=== PATIENT | female | born 1950 | race Caucasian/White ===

== ENCOUNTER 2016-05-22 21:14 | Inpatient (IN) | payer MEDICARE, MEDICAID ==
[~2016-05-22] VITALS: Ht 144.8 cm; Wt 75.0 kg
[~2016-05-22 21:14] MED LIST: GLUCTAB OR; LANTUS2P SC; LISI-360 PO; NAPR-573 PO; NRSS SQ; SYNT50TA PO
[2016-05-22 21:27] VITALS: BP 67/48; PULSE 66; RESP 16; O2SAT 90
[2016-05-22] MEDS ORDERED: PANTOPRAZOLE INJ 80 MG in SODIUM CHLORIDE 0.9% INJ 35 ML IV ONE (21:30)
[2016-05-22] MEDS ORDERED: SODIUM CHLORIDE 0.9% FLUSH 10 ML FLUSH IVF PRN (21:30)
--- NOTE | 2016-05-22 21:31 | PD ---
HPI Chief Complaint: GI Complaint Time Seen by Provider: 21:29 Travel History International Travel<30 days: No Contact w/Intl Traveler<30days: No History of Present Illness HPI 66 year old female presents to the emergency department after a syncopal episode that occurred just prior to arrival. Patient arrived via EMS. Patient was on the toilet and had a syncopal episode. Her family member states that is not new for her. However, during transport to the hospital, the patient started with profuse brown/red diarrhea. Patient remains answering questions, but is diaphoretic and weak. Patient reports history diabetes, hypothyroidism, hypertension. She states she is on insulin. She reports diffuse abdominal pain. Patient denies history of GI bleed. PFSH Past Medical History Diabetes: Yes Diminished Hearing: No Hypertension: Yes Thyroid Disease: Yes (HYPO) Menopausal: Yes Tubal Ligation: Yes Past Surgical History Abdominal Surgery: Yes ( X2) Section: Yes (X2) Social History Alcohol Use: No Tobacco Use: No Substance Use: No Allergies-Medications (Allergen,Severity, Reaction): Coded Allergies: No Known Allergies (Verified , 05/22/16) Reported Meds & Prescriptions Reported Meds & Active Scripts Active Reported Synthroid (Levothyroxine Sodium) 50 Mcg Tab 50 Mcg PO DAILY Naprosyn (Naproxen) 500 Mg Tab 375 Mg PO BID Metformin ER (Metformin HCl) 500 Mg Alejo 500 Mg PO BID With evening meal Lisinopril 10 Mg Tab 10 Mg PO DAILY Humulin R Inj (Insulin Human Regular) 1,000 Unit/10 Ml Vial 1-9 Units SQ ACHS Max dose at bedtime( )units; sugars < 70(0)units; sugars 150-199,(1)unit; sugars 200-249(3)units; sugars 250-299,(5)units; sugars 300-349(7)units; sugars more than 349(9)units. Lantus Inj (Insulin Glargine) 1,000 Unit/10 Ml Vial 12 Units SQ HS Review of Systems Except as stated in HPI: all other systems reviewed are Neg Physical Exam Narrative GENERAL: Well-nourished, well-developed female patient, afebrile. Patient is diaphoretic. SKIN: Focused skin assessment warm/dry. HEAD: Normocephalic. Atraumatic. EYES: No scleral icterus. No injection or drainage. NECK: Supple, trachea midline. No JVD or lymphadenopathy. CARDIOVASCULAR: Regular rate and rhythm without murmurs, gallops, or rubs. I am unable to palpate radial pulses upon arrival. RESPIRATORY: Breath sounds equal bilaterally. No accessory muscle use. Lungs sounds clear to auscultation. GASTROINTESTINAL: Abdomen soft and nondistended. Patient has diffuse tenderness to palpation. MUSCULOSKELETAL: No cyanosis, or edema. Patient has generalized weakness. BACK: Nontender without obvious deformity. No CVA tenderness. Data Data Last Documented VS Vital Signs Date Time Temp Pulse Resp B/P Pulse Ox O2 Delivery O2 Flow Rate FiO2 05/22/16 22:34 97.0 79 18 116/78 100 Nasal Cannula 2 Orders Type And Screen (05/22/16 21:27) Complete Blood Count With Diff (05/22/16 21:26) Comprehensive Metabolic Panel (05/22/16 21:26) Lipase (05/22/16 21:26) Prothrombin Time / Inr (Pt) (05/22/16 21:26) Act Partial Throm Time (Ptt) (05/22/16 21:26) Ua Includes Microscopic (05/22/16 21:26) Red Blood Cells (Rbc) (05/22/16 21:26) Blood Product Administration .UPON TRANSFUSION (05/22/16 21:26) Ecg Monitoring (05/22/16 21:26) Iv Access Insert/Monitor (05/22/16 21:26) Oximetry (05/22/16 21:26) Sodium Chlor 0.9% 1000 Ml Inj (Ns 1000 M (05/22/16 21:26) Sodium Chloride 0.9% Flush (Ns Flush) (05/22/16 21:30) Pantoprazole Inj (Protonix Inj) (05/22/16 21:30) Pantoprazole Inj (Protonix Inj) (05/22/16 21:30) Electrocardiogram (05/22/16 ) Ct Abd/Pel W Iv Contrast(Rout) (05/22/16 ) Chest, Single Ap (05/22/16 ) Labs Laboratory Tests Test 05/22/16 05/22/16 05/22/16 21:37 21:39 22:04 Blood Type A POSITIVE Antibody Screen NEGATIVE Crossmatch Leukocyte-Reduced Leukocyte-Reduced Red Blood Red Blood Cells Cells Blood Bank Comment White Blood Count 14.5 TH/MM3 Red Blood Count 4.92 MIL/MM3 Hemoglobin 12.7 GM/DL Hematocrit 40.5 % Mean Corpuscular Volume 82.4 FL Mean Corpuscular Hemoglobin 25.8 PG Mean Corpuscular Hemoglobin 31.3 % Concent Red Cell Distribution Width 13.9 % Platelet Count 212 TH/MM3 Mean Platelet Volume 6.7 FL Neutrophils (%) (Auto) 79.4 % Lymphocytes (%) (Auto) 17.7 % Monocytes (%) (Auto) 1.7 % Eosinophils (%) (Auto) 0.9 % Basophils (%) (Auto) 0.3 % Neutrophils # (Auto) 11.5 TH/MM3 Lymphocytes # (Auto) 2.6 TH/MM3 Monocytes # (Auto) 0.2 TH/MM3 Eosinophils # (Auto) 0.1 TH/MM3 Basophils # (Auto) 0.0 TH/MM3 CBC Comment DIFF FINAL Differential Comment Prothrombin Time 14.1 SEC Prothromb Time International 1.3 RATIO Ratio Activated Partial 29.4 SEC Thromboplast Time Sodium Level 140 MEQ/L Potassium Level 2.9 MEQ/L Chloride Level 106 MEQ/L Carbon Dioxide Level 20.0 MEQ/L Anion Gap 14 MEQ/L Blood Urea Nitrogen 9 MG/DL Creatinine 1.05 MG/DL Estimat Glomerular Filtration 53 ML/MIN Rate Random Glucose 163 MG/DL Calcium Level 9.3 MG/DL Total Bilirubin 0.6 MG/DL Aspartate Amino Transf 39 U/L (AST/SGOT) Alanine Aminotransferase 25 U/L (ALT/SGPT) Alkaline Phosphatase 87 U/L Total Protein 7.2 GM/DL Albumin 3.7 GM/DL Lipase 297 U/L Urine Color YELLOW Urine Turbidity CLEAR Urine pH 7.0 Urine Specific [place] 1.006 Urine Protein 30 mg/dL Urine Glucose (UA) NEG mg/dL Urine Ketones NEG mg/dL Urine Occult Blood NEG Urine Nitrite NEG Urine Bilirubin NEG Urine Urobilinogen LESS THAN 2.0 MG/DL Urine Leukocyte Esterase NEG Urine WBC LESS THAN 1 /hpf Urine Squamous Epithelial <1 /hpf Cells Urine Bacteria RARE /hpf Microscopic Urinalysis Comment MDM Medical Decision Making Medical Screen Exam Complete: Yes Emergency Medical Condition: Yes Medical Record Reviewed: Yes Differential Diagnosis GI bleed versus electrolyte abnormality versus dehydration versus infectious diarrhea Narrative Course 66-year-old female presents to the emergency department via EMS with diffuse diarrhea after syncopal episode. Hemoccult is grossly positive. Manual blood pressure 67/48 upon arrival. I'm unable to palpate radial pulses due to hypertension. Patient is talking, but weak. Patient has diffuse tenderness to palpation over the abdomen. Attending physician, Dr. donnelly, cell the patient with me. Patient is given 1 unit emergency release packed red blood cells and normal saline IV bolus 2. EKG, CBC, CMP, lipase, PTT, PTT/INR, UA, type and screen are ordered and pending. Protonix 80 mg IV and started on a proton extremity milligrams per hour. Chest x-ray is ordered and pending. CT the abdomen/pelvis with IV contrast is ordered and pending. 0 - I spoke with TERESA Hendrickson electronic pagination system operator. He would like patient to be stabilized and he will scope her tomorrow. EKG shows SR, HR 76, no acute ST changes. CBC shows leukocytosis of 14.5, neutrophilia of 79.4. Dr. Rivera will resume care and disposition of patient. Aga Carlos May 22, 2016 21:31
[2016-05-22] MEDS: SODIUM CHLOR 0.9% 1000 ML INJ 1,000 ML IV SCH ×2 (21:39→22:43)
[2016-05-22 21:45] VITALS: TEMP 95
[2016-05-22 21:47] LABS: AUTOMATED NEUTROPHIL # 11.5 TH/MM3 (1.8-7.7); BASOPHIL % 0.3 % (0.0-2.0); EOSINOPHIL # 0.1 TH/MM3 (0-0.4); EOSINOPHIL % 0.9 % (0.0-4.0); HEMATOCRIT 40.5 % (35.0-46.0); HEMO FLAGS DIFF FINAL; LYMPH % 17.7 % (9.0-44.0); LYMPHOCYTE # 2.6 TH/MM3 (1.0-4.8); MEAN CELL VOLUME 82.4 FL (80.0-100.0); MEAN CORPUSCULAR HEMOGLOBIN 25.8 PG (27.0-34.0); MEAN CORPUSCULAR HGB CONC 31.3 % (32.0-36.0); MONO % 1.7 % (0.0-8.0); NEUT % 79.4 % (16.0-70.0); PLATELET COUNT 212 TH/MM3 (150-450); RED BLOOD COUNT 4.92 MIL/MM3 (4.00-5.30); RED CELL DISTRIBUTION WIDTH 13.9 % (11.6-17.2); WHITE BLOOD COUNT 14.5 TH/MM3 (4.0-11.0)
[2016-05-22 21:57] LABS: APTT (PATIENT) 29.4 SEC (24.3-30.1); INTERNATIONAL NORMALIZED RATIO 1.3 RATIO; PROTHROMBIN TIME - PATIENT 14.1 SEC (9.8-11.6)
--- NOTE | 2016-05-22 22:09 | PD ---
Physical Exam Date Seen by Provider: May 22, 2016 Time Seen by Provider: 21:20 Narrative Patient presented via EMS following a syncopal episode at home. She was on the toilet and had profound diarrhea. EMS reported hypotension in route. Data Data Last Documented VS Vital Signs Date Time Temp Pulse Resp B/P Pulse Ox O2 Delivery O2 Flow Rate FiO2 05/23/16 00:20 97.9 80 16 114/57 100 Nasal Cannula 2 Orders Type And Screen (05/22/16 21:27) Complete Blood Count With Diff (05/22/16 21:26) Comprehensive Metabolic Panel (05/22/16 21:26) Lipase (05/22/16 21:) Prothrombin Time / Inr (Pt) (05/22/16:) Act Partial Throm Time (Ptt) (05/22/16:) Ua Includes Microscopic (05/22/16:) Red Blood Cells (Rbc) (05/22/16 21:) Blood Product Administration .UPON TRANSFUSION (05/22/16:26) Ecg Monitoring (05/22/16:) Iv Access Insert/Monitor (05/22/16 21:26) Oximetry (05/22/16 21:26) Sodium Chlor 0.9% 1000 Ml Inj (Ns 1000 M (05/22/16 21:26) Sodium Chloride 0.9% Flush (Ns Flush) (05/22/16 21:30) Pantoprazole Inj (Protonix Inj) (05/22/16 21:30) Pantoprazole Inj (Protonix Inj) (05/22/16 21:30) Electrocardiogram (05/22/16 ) Ct Abd/Pel W Iv Contrast(Rout) (05/22/16 ) Chest, Single Ap (05/22/16 ) Lactic Acid (05/22/16 22:41) Iohexol 350 Inj (Omnipaque 350 Inj) (05/22/16 23:26) Ondansetron Inj (Zofran Inj) (05/23/16 00:10) Ondansetron Inj (Zofran Inj) (05/23/16 00:15) Piperacil-Tazo 3.375 Gm Premix (Zosyn 3. (05/23/16 00:15) C Diff Toxin Pcr (05/23/16 00:19) Insert Temp Sensing [place] Cath (05/23/16 00:19) Labs Laboratory Tests Test 05/22/16 05/22/16 05/22/16 05/22/16 21:37 21:39 22:04 22:23 Blood Type A POSITIVE A POSITIVE Antibody Screen NEGATIVE Crossmatch Leukocyte-Reduced Leukocyte-Reduced Red Blood Red Blood Cells Cells Blood Bank Comment White Blood Count 14.5 TH/MM3 Red Blood Count 4.92 MIL/MM3 Hemoglobin 12.7 GM/DL Hematocrit 40.5 % Mean Corpuscular Volume 82.4 FL Mean Corpuscular Hemoglobin 25.8 PG Mean Corpuscular Hemoglobin 31.3 % Concent Red Cell Distribution Width 13.9 % Platelet Count 212 TH/MM3 Mean Platelet Volume 6.7 FL Neutrophils (%) (Auto) 79.4 % Lymphocytes (%) (Auto) 17.7 % Monocytes (%) (Auto) 1.7 % Eosinophils (%) (Auto) 0.9 % Basophils (%) (Auto) 0.3 % Neutrophils # (Auto) 11.5 TH/MM3 Lymphocytes # (Auto) 2.6 TH/MM3 Monocytes # (Auto) 0.2 TH/MM3 Eosinophils # (Auto) 0.1 TH/MM3 Basophils # (Auto) 0.0 TH/MM3 CBC Comment DIFF FINAL Differential Comment Prothrombin Time 14.1 SEC Prothromb Time International 1.3 RATIO Ratio Activated Partial 29.4 SEC Thromboplast Time Sodium Level 140 MEQ/L Potassium Level 2.9 MEQ/L Chloride Level 106 MEQ/L Carbon Dioxide Level 20.0 MEQ/L Anion Gap 14 MEQ/L Blood Urea Nitrogen 9 MG/DL Creatinine 1.05 MG/DL Estimat Glomerular Filtration 53 ML/MIN Rate Random Glucose 163 MG/DL Calcium Level 9.3 MG/DL Total Bilirubin 0.6 MG/DL Aspartate Amino Transf 39 U/L (AST/SGOT) Alanine Aminotransferase 25 U/L (ALT/SGPT) Alkaline Phosphatase 87 U/L Total Protein 7.2 GM/DL Albumin 3.7 GM/DL Lipase 297 U/L Urine Color YELLOW Urine Turbidity CLEAR Urine pH 7.0 Urine Specific [place] 1.006 Urine Protein 30 mg/dL Urine Glucose (UA) NEG mg/dL Urine Ketones NEG mg/dL Urine Occult Blood NEG Urine Nitrite NEG Urine Bilirubin NEG Urine Urobilinogen LESS THAN 2.0 MG/DL Urine Leukocyte Esterase NEG Urine WBC LESS THAN 1 /hpf Urine Squamous Epithelial <1 /hpf Cells Urine Bacteria RARE /hpf Microscopic Urinalysis Comment Test 05/22/16 22:47 Lactic Acid Level 1.7 mmol/L MDM Supervised Visit with WILLIAN: Yes Narrative Course I, Dr. Rivera, have reviewed the advance practice practitioner's documentation and am in agreement, met with the patient face to face, made the diagnosis, and the medical decision making was done by me. *My assessment and Findings: Patient was lucid. She is diaphoretic. Initial blood pressure was very low and she has no palpable radial pulses. Fluid resuscitation was started. Levophed has been considered but the patient responded rapidly to fluid resuscitation. Her stool is strongly Hemoccult positive. Therefore, emergent blood was ordered. Has been hemodynamically stable after fluid resuscitation. She did receive 1 unit of emergency release blood. CBC & BMP Diagram 05/22/16 21:39 Last Impressions Chest X-Ray 05/22/16 0000 Signed Impressions: Service Date/Time: Sunday, May 22, 2016 21:56 - CONCLUSION: 1. No acute findings. Kev Nichols MD Abdomen/Pelvis CT 05/22/16 0000 Signed Impressions: Service Date/Time: Sunday, May 22, 2016 23:24 - CONCLUSION: Thickwalled colon in the descending, transverse and the sigmoid colon wall likely colitis. Haresh De León MD Status and has been ordered for colitis.. Critical Care Narrative Aggregate critical care time was 30 minutes. Time to perform other separately billable procedures was not included in the critical care time. My time did not include minutes spent treating any other patients simultaneously or on activities that did not directly contribute to the patient's treatment. The services I provided to this patient were to treat and/or prevent clinically significant deterioration due to hemorrhagic or septic shock. I provided critical care services requiring my management, as noted below: Chart data review, documentation time, medication orders and management, vital sign assessments/reviewing monitor data, ordering and reviewing lab tests, ordering and interpreting/reviewing x-rays and diagnostic studies, care of the patient and discussion of the patient with the admitting physicians. Sepsis Criteria SIRS Criteria (2 or more): Temp > 100.9 or < 96.8, WBC > 75517, < 4000 or > 10 % bands Sepsis Criteria (SIRS+source): Infect source susp/known Severe Sepsis (+one): Hypotension Physician Communication Physician Communication Dr. Doan will admit. GI will see in the morning. Diagnosis Primary Impression: Septic shock Additional Impressions: GI bleed Qualified Code: K92.2 - Gastrointestinal hemorrhage, unspecified gastrointestinal hemorrhage type Colitis Admitting Information Admitting Physician Requests: Admit Condition: Melody Mccain MD May 22, 2016 22:09
[2016-05-22 22:10] VITALS: BP 78/57; PULSE 81; RESP 18; TEMP 96; O2SAT 98
[2016-05-22 22:16] LABS: BACTERIA, URINE RARE /hpf; BLOOD, URINE NEG (NEG); GLUCOSE,URINE NEG (NEG); KETONE, URINE NEG (NEG); NITRITE,URINE NEG (NEG); SQUAMOUS EPITHELIAL CELL URINE <1 /hpf (0-5); URINE COLOR YELLOW (YELLW/STRAW)
[2016-05-22 22:21] LABS: ALKALINE PHOSPHATASE 87 U/L (45-117); ALT (GPT) 25 U/L (10-53); ANION GAP 14 MEQ/L (5-15); AST (GOT) 39 U/L (15-37); BLOOD UREA NITROGEN 9 MG/DL (7-18); CHLORIDE 106 MEQ/L (98-107); GLOMERULAR FILTRATION RATE 53 ML/MIN (>89); SODIUM (NA) 140 MEQ/L (136-145); TOTAL BILIRUBIN ADULT 0.6 MG/DL (0.2-1.0)
[2016-05-22 22:22] LABS: POTASSIUM 2.9 MEQ/L (3.5-5.1)
[2016-05-22] MEDS: PANTOPRAZOLE INJ 80 MG in SODIUM CHLORIDE 0.9% INJ 100 ML IV SCH (22:24)
[2016-05-22 22:34] VITALS: BP 116/78; PULSE 79; RESP 18; TEMP 95.2; TEMP 97; O2SAT 100
[2016-05-22] MEDS ORDERED: LANTUS2P SQ (22:37)
[2016-05-22] MEDS ORDERED: INSU100V2 SQ (22:37)
[2016-05-22] MEDS ORDERED: METF500T4 PO (22:38)
[2016-05-22] MEDS ORDERED: LISI10TA3 PO (22:38)
[2016-05-22] MEDS ORDERED: NAPR500 PO (22:39)
[2016-05-22] MEDS ORDERED: LEVO.05 PO (22:39)
--- NOTE | 2016-05-22 22:41 | RADRPT ---
EXAM DATE/TIME: 05/22/2016 21:56 [facility] COMPARISON: CHEST SINGLE AP, July 17, 2014, 22:02. INDICATIONS : Syncope. MEDICAL HISTORY : None. SURGICAL HISTORY : None. ENCOUNTER: Initial ACUITY: 1 day PAIN SCORE: 0/10 LOCATION: Bilateral chest FINDINGS: A single view of the chest demonstrates the lungs to be symmetrically aerated without evidence of mas s, infiltrate or effusion. The cardiomediastinal contours are unremarkable. Osseous structures are intact. CONCLUSION: 1. No acute findings. Kev Nichols MD on May 22, 2016 at 22:39 Board Certified Radiologist. This report was verified electronically.
[2016-05-22] MEDS ORDERED: IOHEXOL 350 MG/ML 10 ML VIAL (for RAD DIAG) IV ONE (23:26)
--- NOTE | 2016-05-22 23:38 | RADRPT ---
EXAM DATE/TIME: 05/22/2016 23:24 [facility] COMPARISON: No previous studies available for comparison. INDICATIONS : Abdominal pain with bloody stools. IV CONTRAST: 90 cc Omnipaque 350 (iohexol) IV ORAL CONTRAST: No oral contrast ingested. RADIATION DOSE: 7.24 CTDIvol (mGy) MEDICAL HISTORY : Hypertension. Diabetes mellitus type 2. Hypothyroidism. SURGICAL HISTORY : Tubal ligation. section. ENCOUNTER: Initial ACUITY: 2 days PAIN SCALE: 7/10 LOCATION: abdomen TECHNIQUE: Volumetric scanning of the abdomen and pelvis was performed. Using automated exposure control and ad justment of the mA and/or kV according to patient size, radiation dose was kept as low as reasonably achievable to obtain optimal diagnostic quality images. FINDINGS: LOWER LUNGS: The visualized lower lungs are clear. LIVER: Homogeneous density without lesion. There is no dilation of the biliary tree. No calcified gallston es. SPLEEN: Normal size without lesion. PANCREAS: Within normal limits. KIDNEYS: Normal in size and shape. There is no mass, stone or hydronephrosis. ADRENAL GLANDS: Within normal limits. VASCULAR: There is no aortic aneurysm. BOWEL/MESENTERY: The colon is diffusely thickwalled particularly in the transverse and descending colons. Could be see n in patient's with colitis. ABDOMINAL WALL: Within normal limits. RETROPERITONEUM: There is no lymphadenopathy. BLADDER: No wall thickening or mass. REPRODUCTIVE: Within normal limits. INGUINAL: There is no lymphadenopathy or hernia. MUSCULOSKELETAL: Within normal limits for patient age. CONCLUSION: Thickwalled colon in the descending, transverse and the sigmoid colon wall likely colitis. Haresh De León MD on May 22, 2016 at 23:35 Board Certified Radiologist. This report was verified electronically.
[2016-05-23] VITALS (15 sets, daily range): BP systolic 114–148; BP diastolic 5–75; PULSE 74–89; RESP 12–18; TEMP 97.9–100; O2SAT 96–100
[2016-05-23] MEDS ORDERED: ONDANSETRON HCL 4 MG/2 ML VIAL ONE (00:10)
[2016-05-23] MEDS ORDERED: ONDANSETRON HCL 4 MG/2 ML VIAL IV PUSH ONE (00:15)
[2016-05-23] MEDS ORDERED: PIPERACIL-TAZO 3.375 GM PREMIX 50 ML IV ONE (00:15)
--- NOTE | 2016-05-23 01:06 | HHI.HP ---
HPI Service [facility] Primary Care Physician Kevin Ellison MD Admission Diagnosis colitis Diagnoses: Chief Complaint: Syncope, GI bleed Travel History International Travel<30 Days: No Contact w/Intl Traveler <30 Da: No Traveled to Known Affected Are: No Sepsis Criteria SIRS Criteria (2 or more): Temp > 100.9 or < 96.8, WBC > 87925, < 4000 or > 10 % bands Sepsis Criteria (SIRS+source): Infect source susp/known Severe Sepsis (+one): Hypotension History of Present Illness This is a 66 year old female presents with a past medical history which includes DM, HTN, arthritis and hypothyroidism. Reports feeling dizzy prior to going to the bathroom. Patient was on the toilet began to have diarrhea then had syncopal event. Patient reports her daughter was present with her and she did lose consciousness. Denies head trauma. While being transported to the ER via EMS patient had profuse brown/red diarrhea. At that time patient had associated diaphoresis and weakness. Upon arrival to the ER patient was hypotensive with an initial BP of 67/48 which improved after 1L NS bolus, hypothermia 95.0 with leukocytosis 14.5. Patient reports she has had syncope while on the toilet before but reports that she has not had bleeding like this. Reports that she has never had a coloscopy in the past. Denies fevers, chills, SOB, chest pain,vomiting, sick contacts or changes in diet. Review of Systems Except as stated in HPI: all other systems reviewed are Neg Past Family Social History Past Medical History DM insulin dependent, HTN, hypothyroidism Past Surgical History C section x 2, tubal ligation Reported Medications Synthroid (Levothyroxine Sodium) 50 Mcg Tab 50 Mcg PO DAILY Naprosyn (Naproxen) 500 Mg Tab 375 Mg PO BID Metformin ER (Metformin HCl) 500 Mg Alejo 500 Mg PO BID With evening meal Lisinopril 10 Mg Tab 10 Mg PO DAILY Humulin R Inj (Insulin Human Regular) 1,000 Unit/10 Ml Vial 1-9 Units SQ ACHS Max dose at bedtime( )units; sugars < 70(0)units; sugars 150-199,(1)unit; sugars 200-249(3)units; sugars 250-299,(5)units; sugars 300-349(7)units; sugars more than 349(9)units. Lantus Inj (Insulin Glargine) 1,000 Unit/10 Ml Vial 12 Units SQ HS Allergies: Coded Allergies: No Known Allergies (Verified , 05/22/16) Active Ordered Medications Current Medications Medications (Trade) Dose Ordered Sig/Masood Route Start Time Stop Time Status Last Admin Sodium Chloride 2 ml 2 ml UNSCH PRN IVF 05/22/16 21:30 (Protonix Inj/NS Inj) 100 ml @ 10 mls/hr Q10H IV 05/22/16 21:30 05/22/16 22:24 (Synthroid) 50 mcg DAILY PO 05/23/16 09:00 UNV Family History DM, hypothyroidism and HTN run in her family Social History ETOH socially when she was younger has not had any ETOH in 20+ years quit smoking in the Physical Exam Vital Signs Vital Signs Date Time Temp Pulse Resp B/P Pulse Ox O2 Delivery O2 Flow Rate FiO2 05/23/16 00:20 97.9 80 16 114/57 100 Nasal Cannula 2 05/22/16 22:34 95.2 79 18 116/78 100 Nasal Cannula 2 05/22/16 22:20 16 05/22/16 22:10 96.0 81 18 78/57 98 Nasal Cannula 2 05/22/16 22:10 98 Nasal Cannula 2 05/22/16 21:45 95.0 05/22/16 21:27 66 16 67/48 90 Nasal Cannula 2 Physical Exam GENERAL: This is a well-nourished, well-developed patient, appears fatigued SKIN: No rashes, ecchymoses or lesions. Cool and dry. HEAD: Atraumatic. Normocephalic. No temporal or scalp tenderness. EYES: Extraocular motions intact, R eye. No scleral icterus. No injection or drainage. 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 RESPIRATORY: Clear to auscultation. Breath sounds equal bilaterally. No wheezes , rales, or rhonchi. GASTROINTESTINAL: Abdomen soft, generalized tenderness to palpation, nondistended. No guarding. MUSCULOSKELETAL: Extremities without clubbing, cyanosis, or edema. No joint tenderness, effusion, or edema noted. No calf tenderness. Negative Homans sign bilaterally. NEUROLOGICAL: Awake and alert. Motor and sensory grossly within normal limits. 4 out of 5 muscle strength in all muscle groups. Normal speech. Laboratory Laboratory Tests Test 05/22/16 05/22/16 05/22/16 05/22/16 21:37 21:39 22:04 22:23 Blood Type A POSITIVE A POSITIVE Antibody Screen NEGATIVE Crossmatch Leukocyte-Reduced Leukocyte-Reduced Red Blood Red Blood Cells Cells Blood Bank Comment White Blood Count 14.5 Red Blood Count 4.92 Hemoglobin 12.7 Hematocrit 40.5 Mean Corpuscular Volume 82.4 Mean Corpuscular Hemoglobin 25.8 Mean Corpuscular Hemoglobin 31.3 Concent Red Cell Distribution Width 13.9 Platelet Count 212 Mean Platelet Volume 6.7 Neutrophils (%) (Auto) 79.4 Lymphocytes (%) (Auto) 17.7 Monocytes (%) (Auto) 1.7 Eosinophils (%) (Auto) 0.9 Basophils (%) (Auto) 0.3 Neutrophils # (Auto) 11.5 Lymphocytes # (Auto) 2.6 Monocytes # (Auto) 0.2 Eosinophils # (Auto) 0.1 Basophils # (Auto) 0.0 CBC Comment DIFF FINAL Differential Comment Prothrombin Time 14.1 Prothromb Time International 1.3 Ratio Activated Partial 29.4 Thromboplast Time Sodium Level 140 Potassium Level 2.9 Chloride Level 106 Carbon Dioxide Level 20.0 Anion Gap 14 Blood Urea Nitrogen 9 Creatinine 1.05 Estimat Glomerular Filtration 53 Rate Random Glucose 163 Calcium Level 9.3 Total Bilirubin 0.6 Aspartate Amino Transf 39 (AST/SGOT) Alanine Aminotransferase 25 (ALT/SGPT) Alkaline Phosphatase 87 Total Protein 7.2 Albumin 3.7 Lipase 297 Urine Color YELLOW Urine Turbidity CLEAR Urine pH 7.0 Urine Specific [place] 1.006 Urine Protein 30 Urine Glucose (UA) NEG Urine Ketones NEG Urine Occult Blood NEG Urine Nitrite NEG Urine Bilirubin NEG Urine Urobilinogen LESS THAN 2.0 Urine Leukocyte Esterase NEG Urine WBC LESS THAN 1 Urine Squamous Epithelial <1 Cells Urine Bacteria RARE Microscopic Urinalysis Comment Test 05/22/16 22:47 Lactic Acid Level 1.7 Result Diagram: 05/22/16213805/[id number]/[id number] Imaging Last Impressions Chest X-Ray 05/22/16 0000 Signed Impressions: Service Date/Time: Sunday, May 22, 2016 21:56 - CONCLUSION: 1. No acute findings. Kev Nichols MD Abdomen/Pelvis CT 05/22/16 0000 Signed Impressions: Service Date/Time: Sunday, May 22, 2016 23:24 - CONCLUSION: Thickwalled colon in the descending, transverse and the sigmoid colon wall likely colitis. Haresh De León MD Septic Shock Reassessment Heart: Regular rate and rhythm Lungs: Clear Skin: Cold, Dry Peripheral Pulses: Weak Right Dorsalis Pedis Weak Left Dorsalis Pedis Bounding Right Radial Bounding Left Radial Capillary Refill: Sluggish Assessment and Plan Assessment and Plan This is a 66 year old female presents with a past medical history which includes DM, HTN and hypothyroidism. Patient had a syncopal episode while on the toilet, was being transported to the ER via EMS and stated to have profuse brown/red diarrhea. Patient had associated diaphoresis and weakness. Upon arrival to the ER patient was hypotensive with an initial BP of 67/48 which improved after 1L NS bolus, hypothermia 95.0 with leukocytosis 14.5. Severe Septic (WBC 14.5, temp 95.0, suspected source colitis, with hypotension) Colitis Zosyn started by ER BP improved after 1L fluid bolus in ER Continue NS at 100ml/hour Abdominal CT revealed: Thick walled colon in the descending, transverse and the sigmoid colon wall likely colitis. close monitoring NPO GI consult ER provider spoke with DR. Mccarty- who plans colonoscopy in AM GI bleed IV fluids NS at 100ml/hour occult positive stool in ER H&H Q6H Protonix drip NPO GI consult ER provider spoke with DR. Mccarty- who plans colonoscopy in AM Syncope- likely secondary to vasovagal/hypotension/GI bleed and severe sepsis no further workup of syncope at this time Hypokalemia potassium 2.9 replace with potassium 60 meq IV add on mag pending recheck 0600 DM type 2- now on insulin and metformin at home hold metformin hold lantus accuchecks ACHS with SSI coverage Hypothyroidism- chronic Continue Synthroid TSH pending DVT prophylaxis with SCDs Discussed with ER provider, nursing and patient Written by Reba Gentile, acting as scribe for Dr. Doan on 05/23/16 at 01:30. This note was transcribed by scribe [Reba Gentile]. I, Dr. Tony Doan personally performed the history, physical exam, and medical decision making; and confirmed the accuracy of the information in the transcribed note. Authenticated by Dr. Tony Doan on 05/23/16 at 0130. Physician Certification 2 Midnight Certification Type: Admission for Inpatient Services Order for Inpatient Services The services are ordered in accordance with Medicare regulations or non- Medicare payer requirements, as applicable. In the case of services not specified as inpatient-only, they are appropriately provided as inpatient services in accordance with the 2-midnight benchmark. Estimated LOS (days): 5 days is the estimated time the patient will need to remain in the hospital, assuming treatment plan goals are met and no additional complications. Post-Hospital Plan: [place] Reba Gentile May 23, 2016 01:06 Tony Doan MD May 23, 2016 07:07
[2016-05-23] MEDS ORDERED: NALOXONE HCL 0.4 MG/ML AMP IV PRN (01:30)
[2016-05-23] MEDS ORDERED: ACETAMINOPHEN 325 MG TAB PO PRN (01:30)
[2016-05-23] MEDS ORDERED: SODIUM CHLORIDE 0.9% FLUSH 10 ML FLUSH IV FLUSH PRN (01:30)
[2016-05-23] MEDS ORDERED: ONDANSETRON HCL 4 MG/2 ML VIAL IVP PRN (01:30)
[2016-05-23] MEDS: POTASSIUM CHLOR 20 MEQ PREMIX 100 ML IV SCH ×3 (01:44→05:52)
[2016-05-23] MEDS: SODIUM CHLOR 0.9% 1000 ML INJ 1,000 ML IV SCH ×3 (01:44→22:12)
[2016-05-23 02:12] LABS: HEMATOCRIT 38.5 % (35.0-46.0)
[2016-05-23] MEDS ORDERED: GLUCAGON 1 MG/ML VIAL OTHER PRN (02:15)
[2016-05-23 03:11] LABS: C. DIFF EPI 027 PRESUMPTIVE NEGATIVE (NEGATIVE); C. DIFF TOXIN PCR NEGATIVE (NEGATIVE)
[2016-05-23] MEDS ORDERED: MORPHINE SULFATE 4 MG/ML INJ IV PUSH PRN (03:15)
[2016-05-23] MEDS: PANTOPRAZOLE INJ 80 MG in SODIUM CHLORIDE 0.9% INJ 100 ML IV SCH ×3 (05:48→22:11)
[2016-05-23] MEDS: PIPERACIL-TAZO 3.375 GM PREMIX 50 ML IV SCH ×3 (05:52→17:01)
[2016-05-23] MEDS: LEVOTHYROXINE SODIUM 50 MCG TAB PO SCH (06:00)
[2016-05-23 06:17] LABS: HEMATOCRIT 35.9 % (35.0-46.0)
[2016-05-23] MEDS: INSULIN ASPART SUPPLEMENTAL SCALE SQ SCH ×4 (07:00→21:00)
--- NOTE | 2016-05-23 11:29 | PD.CONS ---
HPI History of Present Illness This is a 66 year old who came to the emergency room on 05/22/16 after a syncopal episode while on the toilet. She reports that she was in her normal state of health when she had the sudden onset of abdominal cramping and the urge to move her bowels yesterday. She reports that she had a large amount of liquid stool (she did not see the color) and vomited x 1 (again, she did not see the color). She became dizzy and states she passed out while on the toilet. [facility] was called and on the way to the ER, she passed a large amount of bloody stool. The nurse reports that she also had a liquid stool with blood in it early this am around 3am. She has not had any further episodes. Abdomen/ Pelvis CT (05/22/16)----> Thick walled colon in the descending, transverse and the sigmoid colon wall likely colitis. CDiff was negative. WBC 14.5. HH stable 12.0/35.9. She was hypotensive and admitted to the ICU with severe sepsis, colitis, GI bleeding, syncopal episode, hypokalemia and for management of her chronic medical problems- DM and hypothyroidism. She denies any recent travel, suspicious food, or sick contacts. She does report that she had a similar episode (severe cramping and diarrhea without bleeding) about a year ago and was told that she had a gastroenteritis. Normally, she has more problems with constipation, but states this is controlled by taking garlic oil and raisons. She has never had a colonoscopy. She denies any fever, chills, or weight loss. She does have occasional GERD and was prescribed a PPI by her primary care physician, but does not take this- as she states she prefers natural remedies and therefore drinks water and milk if she has heartburn. She is currently stable- no longer hypotensive and has not had any further bleeding since arrival to the ICU. (Maria L Lindsey) PFSH Past Medical History DM insulin dependent HTN Hypothyroidism Past Surgical History C section x 2 Tubal ligation (Maria L Lindsey) Coded Allergies: No Known Allergies (Verified , 05/22/16) Medications Allergies Coded Allergies Type Severity Reaction Last Updated Verified No Known Allergies 05/22/16 Yes Active Scripts Medications Dose Route/Sig Days Date Category Dose Instructions Synthroid (Levothyroxine Sodium) 50 Mcg Tab 50 Mcg PO DAILY 05/22/16 Reported Naprosyn (Naproxen) 500 Mg Tab 375 Mg PO BID 05/22/16 Reported Metformin ER (Metformin HCl) 500 Mg Alejo 500 Mg PO BID 05/22/16 Reported With evening meal Lisinopril 10 Mg Tab 10 Mg PO DAILY 05/22/16 Reported Humulin R Inj (Insulin Human Regular) 1,000 Unit/10 Ml Vial 1-9 Units SQ ACHS 05/22/16 Reported Max dose at bedtime( )units; sugars < 70(0)units; sugars 150-199,(1)unit; sugars 200-249(3)units; sugars 250-299,(5)units; sugars 300-349(7)units; sugars more than 349(9)units. Lantus Inj (Insulin Glargine) 1,000 Unit/10 Ml Vial 12 Units SQ HS 05/22/16 Reported Family History Maternal uncle had colon cancer Social History No ETOH use. Quit smoking tobacco in the Quit smoking in the (Maria L Lindsey) Review of Systems Constitutional: COMPLAINS OF: Fatigue, DENIES: Fever, Weight loss, Chills Respiratory: DENIES: Cough Cardiovascular: COMPLAINS OF: Syncope, DENIES: Chest pain Gastrointestinal: COMPLAINS OF: Abdominal pain, Bloody stools, Constipation, Diarrhea, Nausea, Vomiting, Heartburn, DENIES: Black stools Integumentary: DENIES: Abnormal pigmentation, Rash Hematologic/lymphatic: DENIES: Bruising Neurologic: DENIES: Headache Psychiatric: DENIES: Confusion (Maria L Lindsey) GI Exam Vitals I&O Vital Signs Date Time Temp Pulse Resp B/P Pulse Ox O2 Delivery O2 Flow Rate FiO2 05/23/16 11:05 81 14 131/5 97 Manual Cuff/Auscultation 05/23/16 10:05 97 05/23/16 10:00 76 05/23/16 10:00 76 18 139/61 96 05/23/16 09:00 77 12 142/63 97 05/23/16 08:00 98.5 79 18 138/63 96 05/23/16 08:00 79 05/23/16 07:00 78 14 126/60 96 05/23/16 06:00 79 05/23/16 06:00 98.0 79 18 133/66 96 05/23/16 03:29 99.0 82 16 135/67 100 Nasal Cannula 2 05/23/16 03:14 99 Nasal Cannula 2.00 05/23/16 02:18 100.0 74 16 130/75 99 Nasal Cannula 2 05/23/16 00:20 97.9 80 16 114/57 100 Nasal Cannula 2 05/22/16 22:34 95.2 79 18 116/78 100 Nasal Cannula 2 05/22/16 22:20 16 05/22/16 22:10 96.0 81 18 78/57 98 Nasal Cannula 2 05/22/16 22:10 98 Nasal Cannula 2 05/22/16 21:45 95.0 05/22/16 21:27 66 16 67/48 90 Nasal Cannula 2 I/O 05/22/16 05/22/16 05/22/16 05/23/16 05/23/16 05/23/16 07:00 15:00 23:00 07:00 15:00 23:00 Intake Total 1750 ml 736 ml Output Total 950 ml Balance 1750 ml -214 ml Intake Oral 0 ml IV Total 1500 ml 736 ml Packed Cells 250 ml Output Urine Total 950 ml # Bowel Movements 4 2 Imaging Last Impressions Chest X-Ray 05/22/16 0000 Signed Impressions: Service Date/Time: Sunday, May 22, 2016 21:56 - CONCLUSION: 1. No acute findings. Kev Nichols MD Abdomen/Pelvis CT 05/22/16 0000 Signed Impressions: Service Date/Time: Sunday, May 22, 2016 23:24 - CONCLUSION: Thickwalled colon in the descending, transverse and the sigmoid colon wall likely colitis. Haresh De León MD Laboratory Test 05/22/16 05/22/16 05/22/16 05/22/16 21:37 21:39 22:04 22:23 Blood Type A POSITIVE A POSITIVE Antibody Screen NEGATIVE Crossmatch Leukocyte-Reduced Leukocyte-Reduced Red Blood Red Blood Cells Cells Blood Bank Comment White Blood Count 14.5 TH/MM3 Red Blood Count 4.92 MIL/MM3 Hemoglobin 12.7 GM/DL Hematocrit 40.5 % Mean Corpuscular Volume 82.4 FL Mean Corpuscular Hemoglobin 25.8 PG Mean Corpuscular Hemoglobin 31.3 % Concent Red Cell Distribution Width 13.9 % Platelet Count 212 TH/MM3 Mean Platelet Volume 6.7 FL Neutrophils (%) (Auto) 79.4 % Lymphocytes (%) (Auto) 17.7 % Monocytes (%) (Auto) 1.7 % Eosinophils (%) (Auto) 0.9 % Basophils (%) (Auto) 0.3 % Neutrophils # (Auto) 11.5 TH/MM3 Lymphocytes # (Auto) 2.6 TH/MM3 Monocytes # (Auto) 0.2 TH/MM3 Eosinophils # (Auto) 0.1 TH/MM3 Basophils # (Auto) 0.0 TH/MM3 CBC Comment DIFF FINAL Differential Comment Prothrombin Time 14.1 SEC Prothromb Time International 1.3 RATIO Ratio Activated Partial 29.4 SEC Thromboplast Time Sodium Level 140 MEQ/L Potassium Level 2.9 MEQ/L Chloride Level 106 MEQ/L Carbon Dioxide Level 20.0 MEQ/L Anion Gap 14 MEQ/L Blood Urea Nitrogen 9 MG/DL Creatinine 1.05 MG/DL Estimat Glomerular Filtration 53 ML/MIN Rate Random Glucose 163 MG/DL Calcium Level 9.3 MG/DL Total Bilirubin 0.6 MG/DL Aspartate Amino Transf 39 U/L (AST/SGOT) Alanine Aminotransferase 25 U/L (ALT/SGPT) Alkaline Phosphatase 87 U/L Total Protein 7.2 GM/DL Albumin 3.7 GM/DL Lipase 297 U/L Magnesium Level 2.2 MG/DL Urine Color YELLOW Urine Turbidity CLEAR Urine pH 7.0 Urine Specific [place] 1.006 Urine Protein 30 mg/dL Urine Glucose (UA) NEG mg/dL Urine Ketones NEG mg/dL Urine Occult Blood NEG Urine Nitrite NEG Urine Bilirubin NEG Urine Urobilinogen LESS THAN 2.0 MG/DL Urine Leukocyte Esterase NEG Urine WBC LESS THAN 1 /hpf Urine Squamous Epithelial <1 /hpf Cells Urine Bacteria RARE /hpf Microscopic Urinalysis Comment Test 05/22/16 05/23/16 05/23/16 05/23/16 22:47 01:21 01:40 04:40 Lactic Acid Level 1.7 mmol/L Stool C. difficile Toxin (PCR) NEGATIVE Stl C. difficile Toxin PRESUMPTIVE Epiderm 027 NEGATIVE Hemoglobin 12.6 GM/DL 12.0 GM/DL Hematocrit 38.5 % 35.9 % Physical Examination HEENT: Normocephalic; atraumatic; no jaundice. CHEST: CTA. CARDIAC: RRR ABDOMEN: Soft, nondistended, nontender; no hepatosplenomegaly; bowel sounds are present in all four quadrants. EXTREMITIES: No clubbing, cyanosis, or edema. SKIN: Normal; no rash; no jaundice. PRACTICE DIRECTOR: No focal deficits; alert and oriented times three. (Maria L Lindsey) Assessment and Plan Plan ASSESSMENT: - Colitis. Sudden onset of abdominal cramping with N/V/D (bloody diarrhea) and syncopal episode while on toilet. Abdomen/Pelvis CT (05/22/16)----> Thick walled colon in the descending, transverse and the sigmoid colon wall likely colitis. CDiff was negative. No recent travel, suspicious food, sick contacts. Never had a colonoscopy. Maternal uncle had colon cancer. Of note, had a similar episode with sudden onset diarrhea/cramping/syncopal episode one year ago- told she had gastroenteritis. WBC 14.5. HH stable 12.0/35.9. Zosyn. - GIB, Hematochezia. Per nurse, last episode was at 3am, none this shift. HH stable 12.0/35.9. - Anemia secondary to blood loss. 12.0/35.9. - GERD. Has been given PPI by PCP, but does not take- drinks milk and water. - N/V x 1. Did not see the color of this. - Sepsis, Leukocytosis, Hypotensive. B/P improved. Zosyn. B/P stable. - Syncopal episode while on toilet. per primary - DM, Hypothyroidism, Hypokalemia. Per primary PLAN: - Plan for egd/colonoscopy in am - Obtain consents - Clear liquids - NPO after MN - Golytely prep - Stool for C/S, O&P, Giardia - PPI - Zosyn - Monitor labs - Supportive care - Further recommendations to follow based on results of above - PT seen and examined by Dr. Marshall and myself and this note is written on her behalf (Maria L Lindsey) Physician Comments seen, examined agree with above (Varsha Marshall MD) Maria L Lindsey May 23, 2016 11:22 Varsha Marshall MD Jun 04, 2016 18:22
--- NOTE | 2016-05-23 11:36 | HHI.PR ---
Subjective Remarks Follow up for colitis, sepsis, hypotension. The patient reports she deals with chronic constipation, she takes a variety of natural foods/juices that help relieve her constipation. She states sometimes she can go 3-4 days without a bowel movement therefore she keeps tracks of her BMs. She states she has been doing fairly well recently, ate breakfast and lunch yesterday without any problems. Denies eating anything out of the ordinary. Last night she was making dinner when she all of a sudden had the urge to have a BM therefore she went to the bathroom, felt lightheaded, and states she must've passed out. She remembers having a large amount of diarrhea and vomited x1. Her daughter found her and called 911. Per the patient, EVAC told her there was blood in her stool. Blood pressure 67/48 and Hemoccult grossly positive upon arrival therefore patient admitted to ICU. The patient is feeling much better this morning. Today she reports some diffuse lower abdominal pressure and feels like she has to have a bowel movement. She states her last BM was at 3am this morning and she was told by the ER nurse that there was bright red blood blood however current RN cannot confirm this. She denies fevers but does report chills, last documented Tmax 100.0 at 2am this morning. Denies any nausea/vomiting. Denies ever having colonoscopy. Denies seeing a compressor technician in the past. Objective Vitals Vital Signs Date Time Temp Pulse Resp B/P Pulse Ox O2 Delivery O2 Flow Rate FiO2 05/23/16 11:05 81 14 131/5 97 Manual Cuff/Auscultation 05/23/16 10:05 97 05/23/16 10:00 76 05/23/16 10:00 76 18 139/61 96 05/23/16 09:00 77 12 142/63 97 05/23/16 08:00 98.5 79 18 138/63 96 05/23/16 08:00 79 05/23/16 07:00 78 14 126/60 96 05/23/16 06:00 79 05/23/16 06:00 98.0 79 18 133/66 96 05/23/16 03:29 99.0 82 16 135/67 100 Nasal Cannula 2 05/23/16 03:14 99 Nasal Cannula 2.00 05/23/16 02:18 100.0 74 16 130/75 99 Nasal Cannula 2 05/23/16 00:20 97.9 80 16 114/57 100 Nasal Cannula 2 05/22/16 22:34 95.2 79 18 116/78 100 Nasal Cannula 2 05/22/16 22:20 16 05/22/16 22:10 96.0 81 18 78/57 98 Nasal Cannula 2 05/22/16 22:10 98 Nasal Cannula 2 05/22/16 21:45 95.0 05/22/16 21:27 66 16 67/48 90 Nasal Cannula 2 I/O 05/22/16 05/22/16 05/22/16 05/23/16 05/23/16 05/23/16 07:00 15:00 23:00 07:00 15:00 23:00 Intake Total 1750 ml 736 ml Output Total 950 ml Balance 1750 ml -214 ml Intake Oral 0 ml IV Total 1500 ml 736 ml Packed Cells 250 ml Output Urine Total 950 ml # Bowel Movements 4 2 Result Diagram: 05/23/16 0440 05/22/169 Imaging Last Impressions Chest X-Ray 05/22/16 0000 Signed Impressions: Service Date/Time: Sunday, May 22, 2016 21:56 - CONCLUSION: 1. No acute findings. Kev Nichols MD Abdomen/Pelvis CT 05/22/16 0000 Signed Impressions: Service Date/Time: Sunday, May 22, 2016 23:24 - CONCLUSION: Thickwalled colon in the descending, transverse and the sigmoid colon wall likely colitis. Haresh De León MD Objective Remarks GENERAL: Well-nourished, well-developed very pleasant female patient in [facility]. SKIN: Warm and dry. No rash. HEENT: Normocephalic. Atraumatic.Pupils equal and round. Mucous membranes pink and moist. NECK: Supple. Trachea midline. CARDIOVASCULAR: Regular rate and rhythm. S1, S2 noted. No murmur appreciated. RESPIRATORY: No accessory muscle use. Clear to auscultation. Breath sounds equal bilaterally. GASTROINTESTINAL: Abdomen soft, nondistended, mild diffuse lower abdominal TTP without guarding. Normoactive bowel sounds x4. MUSCULOSKELETAL: No obvious deformities. Extremities without clubbing, cyanosis , or edema. NEUROLOGICAL: Awake and alert. No obvious cranial nerve deficits. Motor grossly within normal limits. Normal speech. PSYCHIATRIC: Appropriate mood and affect; insight and judgment normal. Medications and IVs Current Medications Medications (Trade) Dose Ordered Sig/Masood Route Start Time Stop Time Status Last Admin (Protonix Inj/NS Inj) 100 ml @ 10 mls/hr Q10H IV 05/22/16 21:30 05/23/16 11:59 Levothyroxine Sodium 50 mcg 50 mcg DAILY@06 PO 05/23/16 06:00 (NS 1000 ml Inj) 1,000 ml @ 100 mls/hr Q10H IV 05/23/16 01:21 05/23/16 12:00 (NS Flush) 2 ml UNSCH PRN IV FLUSH 05/23/16 01:30 (NS Flush) 2 ml BID IV FLUSH 05/23/16 09:00 05/23/16 11:58 (Tylenol) 650 mg Q4H PRN PO 05/23/16 01:30 (Zofran Inj) 4 mg Q6H PRN IVP 05/23/16 01:30 Naloxone HCl 0.4 mg 0.4 mg UNSCH PRN IV 05/23/16 01:30 (Zosyn 3.375 Gm Premix) 50 ml @ 100 mls/hr Q6H IV 05/23/16 06:00 05/23/16 12:00 (D50w (Vial) Inj) 25 ml UNSCH PRN IV PUSH 05/23/16 02:15 (Glucagon Inj) 1 mg UNSCH PRN OTHER 05/23/16 02:15 (Morphine Inj) 2 mg Q3H PRN IV PUSH 05/23/16 03:15 05/23/16 03:27 (Colyte Liq) 4,000 ml ONCE ONCE PO 05/23/16 16:00 05/23/16 16:01 UNV Urinary Catheter: Yes Assessment to: Continue A/P Assessment and Plan 66 year old female presents with a PMH of DM, HTN and hypothyroidism. Patient had a syncopal episode while on the toilet, was being transported to the ER via EMS and stated to have profuse brown/red diarrhea. Patient had associated diaphoresis and weakness. Upon arrival to the ER patient was hypotensive with an initial BP of 67/48 which improved after 1L NS bolus, hypothermia 95.0 with leukocytosis 14.5. Severe Sepsis secondary to Acute Colitis (WBC 14.5, temp 95.0, source colitis, with severe hypotension): CT abd/pelvis images reviewed by me, showed thickwalled colon in the descending, transverse, sigmoid likely colitis. S/p IVF boluses in the ED, BP much improved. Continue IV Zosyn. Continue IVF NS at 100ml/hour. Admitted to ICU for close monitoring overnight however BP much improved, patient stable, transfer to med/surg floor today. GI consulted. GI bleed: Hemoccult grossly positive in the ED. Continue IV fluids NS at 100ml/ hour. Monitor serial H&H Q6H, currently stable at 12.0. Continue IV Protonix drip. Consulted GI, plan for EGD colonoscopy tomorrow. Clear liquid diet for now , NPO after midnight. Syncope: strongly suspect secondary to vasovagal/hypotension/GI bleed and severe sepsis. No further workup of syncope at this time. Hypokalemia potassium 2.9: replace with potassium 60 meq IV. Mag level 2.2. Repeat BMP pending. DM type 2: on insulin and metformin at home, will hold medication. Monitor accuchecks ACHS and cover with SSI coverage Hypothyroidism- chronic. Continue Synthroid DVT prophylaxis with SCDs, avoid chemical prophylaxis with GIB Discussed with [facility], Dr. Rush. Jenni Anna PA-C May 23, 2016 11:35 am
--- NOTE | 2016-05-23 11:39 | EKG ---
Date Performed: 05/22/2016 Time Performed: 21:58:38 PTAGE: 66 years EKG: Sinus rhythm NONSPECIFIC T-WAVE ABNORMALITY BORDERLINE ECG PREVIOUS TRACING : 09/26/2014 02.30 Compared to prior tracing no significant change DOCTOR: Reece Hurst Interpretating Date/Time 05/23/2016 11:38:30
[2016-05-23] MEDS: SODIUM CHLORIDE 0.9% FLUSH 10 ML FLUSH IV FLUSH SCH ×2 (11:58→22:11)
[2016-05-23 13:55] LABS: HEMATOCRIT 35.5 % (35.0-46.0)
[2016-05-23 14:11] LABS: BICARBONATE 21.1 MEQ/L (21.0-32.0); POTASSIUM 4.7 MEQ/L (3.5-5.1)
[2016-05-23] MEDS ORDERED: PEG (High)/E-LYTE SOLN 4000 ML BTL PO ONE (16:00)
[2016-05-23 21:58] LABS: HEMATOCRIT 34.7 % (35.0-46.0)
[2016-05-23] MEDS: DEXTROSE 50% IN WATER 50 ML VIAL(D50) IV PUSH PRN (22:13)
[2016-05-24] VITALS (7 sets, daily range): BP systolic 131–191; BP diastolic 63–82; PULSE 76–87; RESP 16–22; TEMP 97.8–99.9; O2SAT 93–98
[2016-05-24] MEDS: PIPERACIL-TAZO 3.375 GM PREMIX 50 ML IV SCH ×3 (00:01→14:05)
[2016-05-24 05:39] LABS: AUTOMATED NEUTROPHIL # 10.5 TH/MM3 (1.8-7.7); BASOPHIL % 0.2 % (0.0-2.0); EOSINOPHIL # 0.1 TH/MM3 (0-0.4); HEMATOCRIT 32.2 % (35.0-46.0); HEMO FLAGS DIFF FINAL; LYMPH % 10.8 % (9.0-44.0); LYMPHOCYTE # 1.4 TH/MM3 (1.0-4.8); MEAN CELL VOLUME 80.5 FL (80.0-100.0); MEAN CORPUSCULAR HEMOGLOBIN 26.5 PG (27.0-34.0); MEAN CORPUSCULAR HGB CONC 32.8 % (32.0-36.0); MONO % 4.9 % (0.0-8.0); NEUT % 83.1 % (16.0-70.0); PLATELET COUNT 245 TH/MM3 (150-450); RED CELL DISTRIBUTION WIDTH 14.5 % (11.6-17.2); WHITE BLOOD COUNT 12.7 TH/MM3 (4.0-11.0)
[2016-05-24] MEDS: DEXTROSE 50% IN WATER 50 ML VIAL(D50) IV PUSH PRN (05:41)
[2016-05-24] MEDS: INSULIN ASPART SUPPLEMENTAL SCALE SQ SCH ×2 (05:48→11:00)
[2016-05-24] MEDS: LEVOTHYROXINE SODIUM 50 MCG TAB PO SCH (05:48)
[2016-05-24 05:58] LABS: BICARBONATE 22.9 MEQ/L (21.0-32.0); POTASSIUM 3.8 MEQ/L (3.5-5.1)
[2016-05-24] MEDS: SODIUM CHLOR 0.9% 1000 ML INJ 1,000 ML IV SCH (07:21)
[2016-05-24] MEDS: SODIUM CHLORIDE 0.9% FLUSH 10 ML FLUSH IV FLUSH SCH (09:00)
[2016-05-24] MEDS ORDERED: PROPOFOL 200 MG/20 ML AMP IV ONE (09:34)
--- NOTE | 2016-05-24 10:05 | GIPROC ---
[facility] [address] [facility]. [facility], [address] COLONOSCOPY PROCEDURE REPORT EXAM DATE: 05/24/2016 PATIENT NAME: Ching Allan MR #: [id number] BIRTHDATE: 1950 ENDOSCOPIST: Varsha Marshall MD ORDER #: [id number] PRIVATE INVESTIGATOR SURVEILLANCE: Shelton Moore Stienbarger, Terrie, and Elvin Perez STATUS: inpatient INDICATIONS: The patient is a 66 yr old female here for a colonoscopy due to gi bleeding, abnormal ct PROCEDURE PERFORMED: Colonoscopy with biopsy MEDICATIONS: None and Per Anesthesia. PREP QUALITY: fair PREP TYPE:GoLytely ESTIMATED BLOOD LOSS: None CONSENT: The patient understands the risks and benefits of the procedure and understands that these risks include, but are not limited to: sedation, allergic reaction, infection, perforation and/or bleeding. Alternative means of evaluation and treatment include, among others: physical exam, x-rays, and/or surgical intervention. The patient elects to proceed with this endoscopic procedure. medical equipment was checked for proper function. Hand hygiene and appropriate measures for infection prevention was taken. After the risks, benefits and alternatives of the procedure were thoroughly explained, Informed consent was verified, confirmed and timeout was successfully executed by the treatment team. A digital exam revealed internal hemorrhoids The Pentax [id number] and [id number] endoscope was introduced through the anus and advanced to the cecum, which was identified by both the appendix and ileocecal valve. The instrument was then slowly withdrawn as the colon was fully examined. COLON FINDINGS: Colitis descending, sig,oid, splenic -biopsies taken polyps rectosigmoid-7 mm-hot snare polypectomy. Retroflexed views revealed internal hemorrhoids and Retroflexed views revealed small internal hemorrhoids The scope was then completely withdrawn from the patient and the procedure terminated. PROCEDURE WITHDRAWAL TIME:6minutes ADVERSE EVENTS: There were no complications. IMPRESSIONS: 1. Colitis descending, sig,oid, splenic -biopsies taken polyps rectosigmoid-7 mm-hot snare polypectomy 2. Retroflexed views revealed internal hemorrhoids 3. Retroflexed views revealed small internal hemorrhoids 4. Revealed internal hemorrhoids RECOMMENDATIONS: 1. Await biopsy results. Biopsy results will not be ready for 7-10 days. If you don't hear from us in two weeks, call our office for results. 2. Avoid NSAIDS and Aspirin 3. Probiotics from any [facility] or health food store 4. Yearly rectal exams RECALL: Colonoscopy, pending biopsy results Varsha Marshall MD eSigned: Varsha Marshall MD 05/24/2016 10:05 AM cc:
[2016-05-24] MEDS: PANTOPRAZOLE INJ 80 MG in SODIUM CHLORIDE 0.9% INJ 100 ML IV SCH (11:07)
[2016-05-24] MEDS ORDERED: METR-1 PO (14:58)
[2016-05-24] MEDS ORDERED: CIPR-9 PO (14:58)
--- NOTE | 2016-05-24 14:59 | HHI.DCPOC ---
Discharge Care Plan Diagnosis: (1) Colitis (2) GI bleed Goals to Promote Your Health * To prevent worsening of your condition and complications * To maintain your health at the optimal level Directions to Meet Your Goals Take your medications as prescribed Follow your dietary instruction Follow activity as directed Keep your appointments as scheduled Take your immunizations and boosters as scheduled If your symptoms worsen call your PCP, if no PCP go to Urgent Care Center or Emergency Room Smoking is Dangerous to Your Health. Avoid second hand smoke Call the 24-hour hour crisis hotline for domestic abuse at Cathy Loving MD May 24, 2016 14:59
--- NOTE | 2016-05-24 15:00 | HHI.DS ---
Discharge Summary Admission Date May 23, 2016 at 00:49 Discharge Date: May 24, 2016 Admitting Diagnosis colitis (1) GI bleed ICD Code: K92.2 Diagnosis: Principal (2) Colitis ICD Code: K52.9 Diagnosis: Principal (3) Septic shock ICD Code: A41.9 Diagnosis: Principal (4) Diabetes ICD Code: E11.9 Diagnosis: Secondary (5) Hypertension ICD Code: I10 Diagnosis: Secondary Procedures colonoscopy and biopsy Brief History - From Admission This is a 66 year old female presents with a past medical history which includes DM, HTN, arthritis and hypothyroidism. Reports feeling dizzy prior to going to the bathroom. Patient was on the toilet began to have diarrhea then had syncopal event. Patient reports her daughter was present with her and she did lose consciousness. Denies head trauma. While being transported to the ER via EMS patient had profuse brown/red diarrhea. At that time patient had associated diaphoresis and weakness. Upon arrival to the ER patient was hypotensive with an initial BP of 67/48 which improved after 1L NS bolus, hypothermia 95.0 with leukocytosis 14.5. Patient reports she has had syncope while on the toilet before but reports that she has not had bleeding like this. Reports that she has never had a coloscopy in the past. Denies fevers, chills, SOB, chest pain,vomiting, sick contacts or changes in diet. CBC/BMP: 05/24/16 0357 05/24/16 0357 Significant Findings Laboratory Tests Test 05/22/16 05/22/16 05/23/16 05/23/16 21:39 22:04 13:25 20:46 White Blood Count 14.5 TH/MM3 (4.0-11.0) Mean Corpuscular Hemoglobin 25.8 PG (27.0-34.0) Mean Corpuscular Hemoglobin 31.3 % Concent (32.0-36.0) Mean Platelet Volume 6.7 FL (7.0-11.0) Neutrophils (%) (Auto) 79.4 % (16.0-70.0) Neutrophils # (Auto) 11.5 TH/MM3 (1.8-7.7) Prothrombin Time 14.1 SEC (9.8-11.6) Potassium Level 2.9 MEQ/L (3.5-5.1) Carbon Dioxide Level 20.0 MEQ/L (21.0-32.0) Creatinine 1.05 MG/DL (0.50-1.00) Estimat Glomerular Filtration 53 ML/MIN (>89) 87 ML/MIN (>89) Rate Random Glucose 163 MG/DL 107 MG/DL (74-106) (74-106) Aspartate Amino Transf 39 U/L (15-37) (AST/SGOT) Urine Protein 30 mg/dL (NEG-TRACE) Urine Bacteria RARE /hpf (NONE) Chloride Level 113 MEQ/L (98-107) Calcium Level 7.8 MG/DL (8.5-10.1) Hematocrit 34.7 % (35.0-46.0) Test 05/24/16 03:57 White Blood Count 12.7 TH/MM3 (4.0-11.0) Hemoglobin 10.6 GM/DL (11.6-15.3) Hematocrit 32.2 % (35.0-46.0) Mean Corpuscular Hemoglobin 26.5 PG (27.0-34.0) Neutrophils (%) (Auto) 83.1 % (16.0-70.0) Neutrophils # (Auto) 10.5 TH/MM3 (1.8-7.7) Chloride Level 111 MEQ/L (98-107) Blood Urea Nitrogen 5 MG/DL (7-18) Calcium Level 7.9 MG/DL (8.5-10.1) Imaging Last Impressions Chest X-Ray 05/22/16 0000 Signed Impressions: Service Date/Time: Sunday, May 22, 2016 21:56 - CONCLUSION: 1. No acute findings. Kev Nichols MD Abdomen/Pelvis CT 05/22/16 0000 Signed Impressions: Service Date/Time: Sunday, May 22, 2016 23:24 - CONCLUSION: Thickwalled colon in the descending, transverse and the sigmoid colon wall likely colitis. Haresh De León MD PE at Discharge GENERAL: Well-nourished, well-developed very pleasant female patient in [facility]. SKIN: Warm and dry. No rash. HEENT: Normocephalic. Atraumatic.Pupils equal and round. Mucous membranes pink and moist. NECK: Supple. Trachea midline. CARDIOVASCULAR: Regular rate and rhythm. S1, S2 noted. No murmur appreciated. RESPIRATORY: No accessory muscle use. Clear to auscultation. Breath sounds equal bilaterally. GASTROINTESTINAL: Abdomen soft, nondistended,non tender. Normoactive bowel sounds x4. MUSCULOSKELETAL: No obvious deformities. Extremities without clubbing, cyanosis , or edema. NEUROLOGICAL: Awake and alert. No obvious cranial nerve deficits. Motor grossly within normal limits. Normal speech. PSYCHIATRIC: Appropriate mood and affect; insight and judgment normal. Pt update on day of discharge f/u for colitis patient stated she is ready to go home. She stated she has no more diarrhea and no abdominal pain. patient tolerating PO intake. She stated that she has been walking around with no difficulty. patient had colonoscopy today. no acute events since she was last seen. Hospital Course Severe Sepsis secondary to Acute Colitis (WBC 14.5, temp 95.0, source colitis, with severe hypotension): - CT abd/pelvis images reviewed by me, showed thick walled colon in the descending, transverse, sigmoid likely colitis. -patient given multiple boluses which improved her BP. treated with IV Zosyn. -improved quickly with treatment. -lisinopril held due to hypotension but resumed on day of discharge since BP was elevated. Acute colitis -treated with zosyn and supportive care with IVFs. improved quickly. once tolerated PO switched to cipro and flagyl. GI bleed -Hemoccult grossly positive in the ED. -colonoscopy done on 05/24 showing colitis and biopsy obtain. -initially put on Protonix but that was d/c since no indication. Syncope -strongly suspect secondary to vasovagal/hypotension/GI bleed and severe sepsis. No further workup of syncope. -RESOLVED. Hypokalemia potassium -replenisned. DM type 2: -medication held due to decrease PO intake. patient told to f/u with PCP in regards to restarting medication. Told to bring BS reading to PCP. Hypothyroidism -Continue Synthroid Pt Condition on Discharge: Good Discharge Disposition: Discharge Home Discharge Time: > 30 minutes Discharge Instructions DIET: Follow Instructions for: Heart Healthy Diet, Diabetic Diet Activities you can perform: Regular-No Restrictions Follow up Referrals: Gastroenterology - 2 Weeks with Varsha Marshall MD PCP Follow-up - 3-5 Days New Medications: Ciprofloxacin (Cipro) 500 Mg Tab 500 MG PO BID Infection #18 Ref 0 TAB Metronidazole (Flagyl) 500 Mg Tab 500 MG PO TID Infection #27 Ref 0 TAB Continued Medications: Levothyroxine (Synthroid) 50 Mcg Tab 50 MCG PO DAILY Thyroid #30 Ref 0 TAB Lisinopril (Lisinopril) 10 Mg Tab 10 MG PO DAILY #30 Ref 0 TAB Discontinued Medications: Insulin Glargine Inj (Lantus Inj) 1,000 Unit/10 Ml Vial 12 UNITS SQ HS Blood Sugar Management Ref 0 VIAL Insulin Human Regular Inj (Humulin R Inj) 1,000 Unit/10 Ml Vial 1-9 UNITS SQ ACHS Max dose at bedtime( )units; sugars < 70(0)units; sugars 150- 199,(1)unit; sugars 200-249(3)units; sugars 250-299,(5)units; sugars 300-349(7) units; sugars more than 349(9)units. Blood Sugar Management #10 ML Metformin ER (Metformin ER) 500 Mg Alejo 500 MG PO BID With evening meal Blood Sugar Management Ref 0 TAB Naproxen (Naprosyn) 500 Mg Tab 375 MG PO BID #60 Ref 0 TAB Cathy Loving MD May 24, 2016 15:00
== END 2016-05-24 17:10 | disposition home or self-care (01) | DRG 871 ==
LOC: NEPC 21:14 → NEDA 05-23 00:49 → N03B 05-23 05:23 → HOCA 05-24 00:14
PROVIDERS: ADMIT Family Medicine; ATTEND Family Medicine
PROC: 30233N1 Transfusion of Nonautologous Red Blood Cells into Peripheral Vein, Percutaneous Approach (ICD-10-PCS; principal; 2016-05-22)
PROC: 0DBN8ZZ Excision of Sigmoid Colon, Via Natural or Artificial Opening Endoscopic (ICD-10-PCS; 2016-05-24)
PROC: 0DBM8ZX Excision of Descending Colon, Via Natural or Artificial Opening Endoscopic, Diagnostic (ICD-10-PCS; 2016-05-24)
PROC: 0DBL8ZX Excision of Transverse Colon, Via Natural or Artificial Opening Endoscopic, Diagnostic (ICD-10-PCS; 2016-05-24)
PROC: 0DBN8ZX Excision of Sigmoid Colon, Via Natural or Artificial Opening Endoscopic, Diagnostic (ICD-10-PCS; 2016-05-24)
DX: A41.9 Sepsis, unspecified organism (principal); R65.21 Severe sepsis with septic shock; I95.9 Hypotension, unspecified; K52.9 Noninfective gastroenteritis and colitis, unspecified; I10 Essential (primary) hypertension; E11.9 Type 2 diabetes mellitus without complications; D50.0 Iron deficiency anemia secondary to blood loss (chronic); D12.7 Benign neoplasm of rectosigmoid junction; E03.9 Hypothyroidism, unspecified; Z79.4 Long term (current) use of insulin; R61 Generalized hyperhidrosis; R53.1 Weakness; E87.6 Hypokalemia; K21.9 Gastro-esophageal reflux disease without esophagitis; M19.90 Unspecified osteoarthritis, unspecified site
CPT/HCPCS: 36430; 51702; 71010; 74177; 80048; 80053; 81001; 82378; 82948; 83605; 83690; 83735; 85014; 85018; 85025; 85610; 85730; 86850; 86900; 86901; 86920; 87205; 87328; 87329; 87493; 87506; 88305; 93005; 96361; 96365; 96375; C9113; J1815; J2270; J2405; J2543; J3480; J7030; P9016; Q9967

== ENCOUNTER 2016-05-26 02:04 | Emergency (ER) | payer MEDICARE, MEDICAID ==
[~2016-05-26] VITALS: Ht 137.2 cm; Wt 50.0 kg
[~2016-05-26 02:04] MED LIST changes: +CIPR-9 PO; -GLUCTAB OR; -LANTUS2P SC; +LEVO.05 PO; -LISI-360 PO; +LISI10TA3 PO; +METR-1 PO; -NAPR-573 PO; -NRSS SQ; -SYNT50TA PO
[2016-05-26 02:08] VITALS: BP 170/74; PULSE 72; RESP 16; TEMP 98.2; O2SAT 93
[2016-05-26] MEDS ORDERED: LANTUS2P SQ (02:12)
[2016-05-26] MEDS ORDERED: INSU100V2 SQ (02:12)
--- NOTE | 2016-05-26 02:14 | PD ---
HPI Chief Complaint: Diabetic Time Seen by Provider: 02:10 Travel History International Travel<30 days: No Contact w/Intl Traveler<30days: No Traveled to known affect area: No History of Present Illness HPI The patient is a 66-year-old female who presents to the emergency department via EMS for hypoglycemia. The patient was noted to have altered mental status by family earlier today, EMS was notified and when they arrived they checked a bedside Accu-Chek which was 24. The patient had an IV established and the right hand by EMS and was provided 1 amp of D50. The patient's repeat blood glucose was over 220 according EMS, was 190 in the emergency department at bedside. The patient does have a history of diabetes for which she takes Lantus , 12 units at night, and sliding scale insulin. The patient took sliding scale insulin yesterday at lunch, 3 units because her blood sugar was 200, and took her Lantus last night, 12 units. The patient states she recently underwent a colonoscopy 2 days ago, and has had a slightly decreased appetite since then. The patient also states she has shortness of breath after taking her laxative 2 days ago which has resolved. She denies any current chest pain, nausea, or vomiting. The patient denies taking any oral hypoglycemics. She denies any dysuria. Patient states her altered mental status has resolved and is requesting to go home. PFSH Past Medical History Diabetes: Yes Diminished Hearing: No Hypertension: Yes Thyroid Disease: Yes (HYPO) Menopausal: Yes Tubal Ligation: Yes Past Surgical History Abdominal Surgery: Yes ( X2) Section: Yes (X2) Social History Alcohol Use: No Tobacco Use: No Substance Use: No Allergies-Medications (Allergen,Severity, Reaction): Coded Allergies: No Known Allergies (Verified , 05/22/16) Reported Meds & Prescriptions Reported Meds & Active Scripts Active Flagyl (Metronidazole) 500 Mg Tab 500 Mg PO TID Cipro (Ciprofloxacin HCl) 500 Mg Tab 500 Mg PO BID Reported Humulin R Inj (Insulin Human Regular) 1,000 Unit/10 Ml Vial 2-12 Units SQ ACHS Max dose at bedtime:( )units; sugars < 70 (0)units; sugars 150-199, (2)units; sugars 200-249,(4)units; sugars 250-299, (7)units; sugars 300-349,(10)units; sugars more than 349,(12)units. Lantus Inj (Insulin Glargine) 1,000 Unit/10 Ml Vial 12 Units SQ HS Synthroid (Levothyroxine Sodium) 50 Mcg Tab 50 Mcg PO DAILY Lisinopril 10 Mg Tab 10 Mg PO DAILY Review of Systems Except as stated in HPI: all other systems reviewed are Neg General / Constitutional: No: Fever Cardiovascular: No: Chest Pain or Discomfort Respiratory: No: Shortness of Breath Gastrointestinal: No: Nausea, Vomiting, Abdominal Pain Genitourinary: No: Dysuria Musculoskeletal: No: Weakness Neurologic: Positive: Change in Mentation Physical Exam Narrative GENERAL: Awake, alert, pleasant 66-year-old female who appears her stated age and is in no acute respiratory distress. SKIN: Focused skin assessment warm/dry. Ecchymosis noted in the left upper extremity from previous IVs from colonoscopy date. HEAD: Atraumatic. Normocephalic. EYES: Right pupils round and reactive. 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 ENT: No nasal bleeding or discharge. Mucous membranes pink and moist. NECK: Trachea midline. No JVD. CARDIOVASCULAR: Regular rate and rhythm. No murmur appreciated. RESPIRATORY: No accessory muscle use. Clear to auscultation. Breath sounds equal bilaterally. GASTROINTESTINAL: Abdomen soft, non-tender, nondistended. No rebound tenderness. MUSCULOSKELETAL: No obvious deformities. No clubbing. No cyanosis. No edema. Positive distal pulses. NEUROLOGICAL: Awake and alert. No obvious cranial nerve deficits. Motor grossly within normal limits. Normal speech. Patient is oriented to day the week, month, year, person, and place. PSYCHIATRIC: Appropriate mood and affect; insight and judgment normal. Data Data Last Documented VS Vital Signs Date Time Temp Pulse Resp B/P Pulse Ox O2 Delivery O2 Flow Rate FiO2 05/26/16 02:19 16 93 Room Air 05/26/16 02:08 98.2 72 170/74 Orders Complete Blood Count With Diff (05/26/16 02:10) Comprehensive Metabolic Panel (05/26/16 02:10) Urinalysis - C+S If Indicated (05/26/16 02:10) Blood Glucose (05/26/16 02:10) Blood Glucose (05/26/16 03:10) Ecg Monitoring (05/26/16 02:10) Iv Access Insert/Monitor (05/26/16 02:10) Oximetry (05/26/16 02:10) Sodium Chloride 0.9% Flush (Ns Flush) (05/26/16 02:15) Troponin I (05/26/16 02:10) Creatine Kinase (Cpk) (05/26/16 02:10) CKMB (05/26/16 02:10) CKMB% (05/26/16 02:10) Labs Laboratory Tests Test 05/26/16 05/26/16 02:10 03:30 White Blood Count 9.2 TH/MM3 Red Blood Count 3.96 MIL/MM3 Hemoglobin 10.8 GM/DL Hematocrit 31.4 % Mean Corpuscular Volume 79.2 FL Mean Corpuscular Hemoglobin 27.2 PG Mean Corpuscular Hemoglobin 34.3 % Concent Red Cell Distribution Width 14.3 % Platelet Count 287 TH/MM3 Mean Platelet Volume 7.4 FL Neutrophils (%) (Auto) 77.0 % Lymphocytes (%) (Auto) 13.9 % Monocytes (%) (Auto) 6.1 % Eosinophils (%) (Auto) 2.4 % Basophils (%) (Auto) 0.6 % Neutrophils # (Auto) 7.1 TH/MM3 Lymphocytes # (Auto) 1.3 TH/MM3 Monocytes # (Auto) 0.6 TH/MM3 Eosinophils # (Auto) 0.2 TH/MM3 Basophils # (Auto) 0.1 TH/MM3 CBC Comment DIFF FINAL Differential Comment Sodium Level 135 MEQ/L Potassium Level 5.1 MEQ/L Chloride Level 101 MEQ/L Carbon Dioxide Level 26.9 MEQ/L Anion Gap 7 MEQ/L Blood Urea Nitrogen 5 MG/DL Creatinine 0.89 MG/DL Estimat Glomerular Filtration 64 ML/MIN Rate Random Glucose 702 MG/DL Calcium Level 8.5 MG/DL Total Bilirubin 0.6 MG/DL Aspartate Amino Transf 57 U/L (AST/SGOT) Alanine Aminotransferase 23 U/L (ALT/SGPT) Alkaline Phosphatase 76 U/L Total Creatine Kinase 300 U/L Creatine Kinase MB 4.3 NG/ML Creatine Kinase MB % 1.4 % Troponin I 0.02 NG/ML Total Protein 6.5 GM/DL Albumin 3.0 GM/DL Urine Color LIGHT-YELLOW Urine Turbidity CLEAR Urine pH 6.5 Urine Specific Hillister 1.002 Urine Protein NEG mg/dL Urine Glucose (UA) 300 mg/dL Urine Ketones 10 mg/dL Urine Occult Blood NEG Urine Nitrite NEG Urine Bilirubin NEG Urine Urobilinogen LESS THAN 2.0 MG/DL Urine Leukocyte Esterase NEG Urine RBC LESS THAN 1 /hpf Urine WBC LESS THAN 1 /hpf Microscopic Urinalysis Comment CATH-CULT NOT IND MDM Medical Decision Making Medical Screen Exam Complete: Yes Emergency Medical Condition: Yes Medical Record Reviewed: Yes Interpretation(s) EKG reveals normal sinus rhythm with a rate of 73. No ischemic changes or ectopy noted. Laboratory Tests Test 05/26/16 05/26/16 02:10 03:30 White Blood Count 9.2 TH/MM3 Red Blood Count 3.96 MIL/MM3 Hemoglobin 10.8 GM/DL Hematocrit 31.4 % Mean Corpuscular Volume 79.2 FL Mean Corpuscular Hemoglobin 27.2 PG Mean Corpuscular Hemoglobin 34.3 % Concent Red Cell Distribution Width 14.3 % Platelet Count 287 TH/MM3 Mean Platelet Volume 7.4 FL Neutrophils (%) (Auto) 77.0 % Lymphocytes (%) (Auto) 13.9 % Monocytes (%) (Auto) 6.1 % Eosinophils (%) (Auto) 2.4 % Basophils (%) (Auto) 0.6 % Neutrophils # (Auto) 7.1 TH/MM3 Lymphocytes # (Auto) 1.3 TH/MM3 Monocytes # (Auto) 0.6 TH/MM3 Eosinophils # (Auto) 0.2 TH/MM3 Basophils # (Auto) 0.1 TH/MM3 CBC Comment DIFF FINAL Differential Comment Sodium Level 135 MEQ/L Potassium Level 5.1 MEQ/L Chloride Level 101 MEQ/L Carbon Dioxide Level 26.9 MEQ/L Anion Gap 7 MEQ/L Blood Urea Nitrogen 5 MG/DL Creatinine 0.89 MG/DL Estimat Glomerular Filtration 64 ML/MIN Rate Random Glucose 702 MG/DL Calcium Level 8.5 MG/DL Total Bilirubin 0.6 MG/DL Aspartate Amino Transf 57 U/L (AST/SGOT) Alanine Aminotransferase 23 U/L (ALT/SGPT) Alkaline Phosphatase 76 U/L Total Creatine Kinase 300 U/L Creatine Kinase MB 4.3 NG/ML Creatine Kinase MB % 1.4 % Troponin I 0.02 NG/ML Total Protein 6.5 GM/DL Albumin 3.0 GM/DL Urine Color LIGHT-YELLOW Urine Turbidity CLEAR Urine pH 6.5 Urine Specific Hillister 1.002 Urine Protein NEG mg/dL Urine Glucose (UA) 300 mg/dL Urine Ketones 10 mg/dL Urine Occult Blood NEG Urine Nitrite NEG Urine Bilirubin NEG Urine Urobilinogen LESS THAN 2.0 MG/DL Urine Leukocyte Esterase NEG Urine RBC LESS THAN 1 /hpf Urine WBC LESS THAN 1 /hpf Microscopic Urinalysis Comment CATH-CULT NOT IND Differential Diagnosis Differential diagnosis includes hypoglycemia, medication side effect, dehydration, UTI, hyponatremia, STEMI. Narrative Course IV was established, labs are drawn and sent, and the patient was placed on cardiac telemetry monitoring and continuous pulse oximetry monitoring. EKG was ordered and interpreted. Accu-Chek every hour 2 was ordered. The patient was allowed to drink Gatorade and eat crackers. Repeat Accu-Chek was obtained. Lab called and stated the patient's blood sugar was 72, however, that was drawn from the same line were the amp of D50 was administered by EMS. The patient's Accu-Chek performed in the distal site was 247. The patient was reevaluated at 3:50 AM, was asymptomatic. Neurologically she was alert and oriented 5. Therefore, repeat Accu-Chek was obtained at 4:15 AM. The patient's repeat Accu- Chek at 4:15 AM was 215. The patient's currently asymptomatic. The patient be discharged home is advised to monitor blood sugars and return if symptoms worsen or progress. Diagnosis Primary Impression: Hypoglycemia Patient Instructions: General Instructions Additional Instructions: Monitor blood sugars. Eat regularly. Return if symptoms worsen or progress. Follow-up with her primary physician. Med/Other Pt SpecificInfo: No Change to Meds Disposition: 01 DISCHARGE HOME Condition: Stable Real Orozco MD May 26, 2016 02:14
[2016-05-26] MEDS ORDERED: SODIUM CHLORIDE 0.9% FLUSH 10 ML FLUSH IVF PRN (02:15)
[2016-05-26 02:19] VITALS: RESP 16; O2SAT 93
[2016-05-26 02:32] LABS: AUTOMATED NEUTROPHIL # 7.1 TH/MM3 (1.8-7.7); BASOPHIL # 0.1 TH/MM3 (0-0.2); BASOPHIL % 0.6 % (0.0-2.0); EOSINOPHIL # 0.2 TH/MM3 (0-0.4); EOSINOPHIL % 2.4 % (0.0-4.0); HEMATOCRIT 31.4 % (35.0-46.0); HEMO FLAGS DIFF FINAL; LYMPH % 13.9 % (9.0-44.0); LYMPHOCYTE # 1.3 TH/MM3 (1.0-4.8); MEAN CELL VOLUME 79.2 FL (80.0-100.0); MEAN CORPUSCULAR HEMOGLOBIN 27.2 PG (27.0-34.0); MEAN CORPUSCULAR HGB CONC 34.3 % (32.0-36.0); MONO % 6.1 % (0.0-8.0); PLATELET COUNT 287 TH/MM3 (150-450); RED BLOOD COUNT 3.96 MIL/MM3 (4.00-5.30); RED CELL DISTRIBUTION WIDTH 14.3 % (11.6-17.2); WHITE BLOOD COUNT 9.2 TH/MM3 (4.0-11.0)
[2016-05-26 03:12] LABS: ALKALINE PHOSPHATASE 76 U/L (45-117); ALT (GPT) 23 U/L (10-53); ANION GAP 7 MEQ/L (5-15); AST (GOT) 57 U/L (15-37); BICARBONATE 26.9 MEQ/L (21.0-32.0); BLOOD UREA NITROGEN 5 MG/DL (7-18); CHLORIDE 101 MEQ/L (98-107); CREATINE KINASE 300 U/L (26-192); GLOMERULAR FILTRATION RATE 64 ML/MIN (>89); POTASSIUM 5.1 MEQ/L (3.5-5.1); SODIUM (NA) 135 MEQ/L (136-145); TOTAL BILIRUBIN ADULT 0.6 MG/DL (0.2-1.0)
[2016-05-26 03:28] LABS: CKMB 4.3 NG/ML (0.5-3.6)
[2016-05-26 03:37] LABS: BLOOD, URINE NEG (NEG); GLUCOSE,URINE 300 mg/dL (NEG); KETONE, URINE 10 mg/dL (NEG); NITRITE,URINE NEG (NEG); PH, URINE 6.5 (5.0-8.5); URINE COLOR LIGHT-YELLOW (YELLW/STRAW)
[2016-05-26 03:48] LABS: COMMENT (UR) CATH-CULT NOT IND; CULTURE IF INDICATED CATH CULTURE NOT IND
--- NOTE | 2016-05-30 09:25 | EKG ---
Date Performed: 05/26/2016 Time Performed: 01:56:40 PTAGE: 66 years EKG: Sinus rhythm NORMAL ECG NO PREVIOUS TRACING DOCTOR: Dariel Jules Interpretating Date/Time 05/30/2016 09:24:03
== END 2016-05-26 04:54 | disposition home or self-care (01) ==
LOC: NEPC 02:04
DX: E11.649 Type 2 diabetes mellitus with hypoglycemia without coma (principal); Z79.4 Long term (current) use of insulin; I10 Essential (primary) hypertension
CPT/HCPCS: 80053; 81001; 82550; 82552; 84484; 85025; 93005

== ENCOUNTER 2017-02-26 19:52 | Emergency (ER) | payer MEDICARE, MEDICAID ==
[~2017-02-26] VITALS: Ht 137.2 cm; Wt 52.0 kg
[~2017-02-26 19:52] MED LIST changes: +INSU100V2 SQ; +LANTUS2P SQ
[2017-02-26] MEDS ORDERED: LEVO75TA3 PO (20:02)
[2017-02-26] MEDS ORDERED: LANTUS2P SQ (20:02)
[2017-02-26 20:09] VITALS: BP 144/62; PULSE 67; RESP 16; TEMP 97.6; O2SAT 100
--- NOTE | 2017-02-26 20:10 | PD ---
HPI Chief Complaint: Syncope/Near-Syncope Time Seen by Provider: 20:04 Travel History International Travel<30 days: No Contact w/Intl Traveler<30days: No Traveled to known affect area: No History of Present Illness HPI Patient has a 66-year-old female that apparently was not in the bathroom attempting to move her bowels when while straining she had a syncopal episode baseless witnessed by her daughter who has urging her not to push so hard. syncopal episode lasted 20 seconds, patient regained her senses and was immediatlely at baseline. pt denies any actual complaints at this time and feels much better after voiding. no alleviating/aggravating factors. no assoc factors such as fever/cp/garcia/abdpain/backpain/n/v/d/palpitations/dizziness Allergy: Denies Past medical history significant for diabetes hypertension hypothyroid PFSH Past Medical History Diabetes: Yes Diminished Hearing: No Hypertension: Yes Thyroid Disease: Yes (HYPO) Menopausal: Yes Tubal Ligation: Yes Past Surgical History Abdominal Surgery: Yes ( X2) Section: Yes (X2) Social History Alcohol Use: No Tobacco Use: No Substance Use: No Allergies-Medications (Allergen,Severity, Reaction): Coded Allergies: No Known Allergies (Verified Adverse Reaction, Unknown, 02/26/17) Reported Meds & Prescriptions Reported Meds & Active Scripts Active Reported Lantus Inj (Insulin Glargine) 1,000 Unit/10 Ml Vial 15 Units SQ HS Levothyroxine (Levothyroxine Sodium) 75 Mcg Tab 75 Mcg PO DAILY Humulin R Inj (Insulin Human Regular) 1,000 Unit/10 Ml Vial 2-12 Units SQ ACHS Max dose at bedtime:( )units; sugars < 70 (0)units; sugars 150-199, (2)units; sugars 200-249,(4)units; sugars 250-299, (7)units; sugars 300-349,(10)units; sugars more than 349,(12)units. Lisinopril 10 Mg Tab 10 Mg PO DAILY Review of Systems Except as stated in HPI: all other systems reviewed are Neg General / Constitutional: No: Fever Eyes: No: Visual changes HENT: No: Headaches Cardiovascular: No: Chest Pain or Discomfort Respiratory: No: Shortness of Breath Gastrointestinal: No: Abdominal Pain Genitourinary: No: Dysuria Musculoskeletal: No: Pain Skin: No Rash Neurologic: Positive: Syncope Psychiatric: No: Depression Endocrine: No: Polydipsia Hematologic/Lymphatic: No: Easy Bruising Physical Exam Narrative GENERAL: Well-nourished, well-developed patient in no apparent distress. SKIN: Warm and dry. HEAD: Atraumatic. Normocephalic. EYES: Pupils equal and round. No scleral icterus. No injection or drainage. ENT: No nasal bleeding or discharge. Mucous membranes pink and moist. NECK: Trachea midline. No JVD. CARDIOVASCULAR: Regular rate and rhythm. no rubs or gallops RESPIRATORY: No accessory muscle use. Clear to auscultation. Breath sounds equal bilaterally. GASTROINTESTINAL: Abdomen soft, non-tender, nondistended. No rebound or guarding MUSCULOSKELETAL: Extremities without clubbing, cyanosis, or edema. No obvious deformities. NEUROLOGICAL: Awake and alert. No obvious cranial nerve deficits. Motor grossly within normal limits. Five out of 5 muscle strength in the arms and legs. Normal speech. PSYCHIATRIC: Appropriate mood and affect; insight and judgment normal. Data Data Last Documented VS Vital Signs Date Time Temp Pulse Resp B/P (MAP) Pulse Ox O2 Delivery O2 Flow Rate FiO2 02/26/17 20:09 97.6 67 16 144/62 (89) 100 Room Air Orders Orders Electrocardiogram (02/26/17 20:05) Complete Blood Count With Diff (02/26/17 20:05) Comprehensive Metabolic Panel (02/26/17 20:05) Troponin I (02/26/17 20:05) Lipase (02/26/17 20:05) Chest, Single Ap (02/26/17 20:05) Ct Brain W/O Iv Contrast(Rout) (02/26/17 20:05) Labs Laboratory Tests Test 02/26/17 20:24 White Blood Count 10.9 TH/MM3 Red Blood Count 4.37 MIL/MM3 Hemoglobin 11.5 GM/DL Hematocrit 36.6 % Mean Corpuscular Volume 83.6 FL Mean Corpuscular Hemoglobin 26.3 PG Mean Corpuscular Hemoglobin Concent 31.5 % Red Cell Distribution Width 13.3 % Platelet Count 318 TH/MM3 Mean Platelet Volume 6.8 FL Neutrophils (%) (Auto) 74.8 % Lymphocytes (%) (Auto) 20.2 % Monocytes (%) (Auto) 2.7 % Eosinophils (%) (Auto) 1.8 % Basophils (%) (Auto) 0.5 % Neutrophils # (Auto) 8.2 TH/MM3 Lymphocytes # (Auto) 2.2 TH/MM3 Monocytes # (Auto) 0.3 TH/MM3 Eosinophils # (Auto) 0.2 TH/MM3 Basophils # (Auto) 0.0 TH/MM3 CBC Comment DIFF FINAL Differential Comment Blood Urea Nitrogen 13 MG/DL Creatinine 0.85 MG/DL Random Glucose 169 MG/DL Total Protein 7.1 GM/DL Albumin 3.5 GM/DL Calcium Level 9.1 MG/DL Alkaline Phosphatase 94 U/L Aspartate Amino Transf (AST/SGOT) 36 U/L Alanine Aminotransferase (ALT/SGPT) 17 U/L Total Bilirubin 0.4 MG/DL Sodium Level 136 MEQ/L Potassium Level 4.0 MEQ/L Chloride Level 104 MEQ/L Carbon Dioxide Level 22.8 MEQ/L Anion Gap 9 MEQ/L Estimat Glomerular Filtration Rate 67 ML/MIN Troponin I LESS THAN 0.02 NG/ML Lipase 138 U/L [facility] Medical Decision Making Medical Screen Exam Complete: Yes Emergency Medical Condition: Yes Medical Record Reviewed: Yes Interpretation(s) EKG: Baseline motion artifact, normal sinus rhythm at 67, normal intervals, nonspecific ST-T wave changes, no STEMI pattern Differential Diagnosis ich v electrolyte abnl v anemia v atypical stemi v vagal syncope due to strain Narrative Course no anemia, no leukocytosis, no left shift, normal electrolytes, neg troponin, nondiagnostic ekg, ct head neg for ich/mass at this time. patient at baseline and tolerated po challenge Diagnosis Primary Impression: vasovagal syncope Patient Instructions: General Instructions, Syncope (ED) Disposition: 01 DISCHARGE HOME Condition: Stable Angel Mei MD Feb 26, 2017 20:10
--- NOTE | 2017-02-26 20:24 | RADRPT ---
EXAM DATE/TIME: 02/26/2017 20:10 [facility] COMPARISON: CHEST SINGLE AP, May 22, 2016, 21:56. INDICATIONS : Syncopal Episode, Short of Breath MEDICAL HISTORY : Hypertension. Diabetes mellitus type 2. Hypothyroidism. SURGICAL HISTORY : Tubal ligation. section. ENCOUNTER: Initial ACUITY: 1 day PAIN SCORE: 0/10 LOCATION: Bilateral chest FINDINGS: A single view of the chest demonstrates the lungs to be symmetrically aerated without evidence of mas s, infiltrate or effusion. The cardiomediastinal contours are unremarkable. Osseous structures are intact. CONCLUSION: No acute disease. Rafa Artis MD on February 26, 2017 at 20:21 Board Certified Radiologist. This report was verified electronically.
[2017-02-26 20:33] LABS: AUTOMATED NEUTROPHIL # 8.2 TH/MM3 (1.8-7.7); BASOPHIL % 0.5 % (0.0-2.0); EOSINOPHIL # 0.2 TH/MM3 (0-0.4); EOSINOPHIL % 1.8 % (0.0-4.0); HEMATOCRIT 36.6 % (35.0-46.0); HEMOGLOBIN 11.5 GM/DL (11.6-15.3); LYMPH % 20.2 % (9.0-44.0); LYMPHOCYTE # 2.2 TH/MM3 (1.0-4.8); MEAN CELL VOLUME 83.6 FL (80.0-100.0); MEAN CORPUSCULAR HEMOGLOBIN 26.3 PG (27.0-34.0); MEAN CORPUSCULAR HGB CONC 31.5 % (32.0-36.0); MEAN PLATELET VOLUME 6.8 FL (7.0-11.0); MONO % 2.7 % (0.0-8.0); MONOCYTE # 0.3 TH/MM3 (0-0.9); NEUT % 74.8 % (16.0-70.0); PLATELET COUNT 318 TH/MM3 (150-450); RED BLOOD COUNT 4.37 MIL/MM3 (4.00-5.30); RED CELL DISTRIBUTION WIDTH 13.3 % (11.6-17.2); WHITE BLOOD COUNT 10.9 TH/MM3 (4.0-11.0)
[2017-02-26 21:00] LABS: ALT (GPT) 17 U/L (10-53)
[2017-02-26 21:02] LABS: ALBUMIN 3.5 GM/DL (3.4-5.0); AST (GOT) 36 U/L (15-37); BICARBONATE 22.8 MEQ/L (21.0-32.0); BLOOD UREA NITROGEN 13 MG/DL (7-18); CALCIUM 9.1 MG/DL (8.5-10.1); CHLORIDE 104 MEQ/L (98-107); CREATININE 0.85 MG/DL (0.50-1.00); GLOMERULAR FILTRATION RATE 67 ML/MIN (>89); GLUCOSE,RANDOM 169 MG/DL (74-106); LIPASE 138 U/L (73-393); SODIUM (NA) 136 MEQ/L (136-145)
[2017-02-26 21:04] LABS: ALKALINE PHOSPHATASE 94 U/L (45-117); TOTAL BILIRUBIN ADULT 0.4 MG/DL (0.2-1.0); TOTAL PROTEIN 7.1 GM/DL (6.4-8.2); TROPONIN I LESS THAN 0.02 NG/ML (0.02-0.05)
--- NOTE | 2017-02-26 21:25 | RADRPT ---
EXAM DATE/TIME: 02/26/2017 21:16 [facility] COMPARISON: No previous studies available for comparison. INDICATIONS : Syncopal episode with bowel movement. RADIATION DOSE: 35.68 CTDIvol (mGy) MEDICAL HISTORY : Hypertension. Diabetes mellitus type 1. SURGICAL HISTORY : Tubal ligation. ENCOUNTER: Initial ACUITY: 1 day PAIN SCALE: 0/10 LOCATION: cranial TECHNIQUE: Multiple contiguous axial images were obtained of the head. Using automated exposure control and adj ustment of the mA and/or kV according to patient size, radiation dose was kept as low as reasonably a chievable to obtain optimal diagnostic quality images. DICOM format image data is available electro nically for review and comparison. FINDINGS: CEREBRUM: The ventricles are normal for age. No evidence of midline shift, mass lesion, hemorrhage or acute in farction. No extra-axial fluid collections are seen. Left eye prosthesis. POSTERIOR FOSSA: The cerebellum and brainstem are intact. The 4th ventricle is midline. The cerebellopontine angle i s unremarkable. EXTRACRANIAL: The visualized portion of the orbits is intact. SKULL: The calvaria is intact. No evidence of skull fracture. CONCLUSION: No acute disease. Rafa Artis MD on February 26, 2017 at 21:21 Board Certified Radiologist. This report was verified electronically.
[2017-02-26 21:37] VITALS: BP 124/56; PULSE 67; RESP 16; O2SAT 99
--- NOTE | 2017-02-27 19:42 | EKG ---
Date Performed: 02/26/2017 Time Performed: 20:11:26 PTAGE: 66 years EKG: Sinus rhythm NONSPECIFIC T-WAVE ABNORMALITY BORDERLINE ECG PREVIOUS TRACING : 05/26/2016 01.56 Since previous tracing, no significant change noted DOCTOR: Kati Quinones Interpretating Date/Time 02/27/2017 19:40:04
== END 2017-02-26 21:51 | disposition home or self-care (01) ==
LOC: NEPE 19:52
DX: R55 Syncope and collapse (principal); E11.9 Type 2 diabetes mellitus without complications; I10 Essential (primary) hypertension; E03.9 Hypothyroidism, unspecified; R94.31 Abnormal electrocardiogram [ECG] [EKG]; Z79.4 Long term (current) use of insulin; Z79.899 Other long term (current) drug therapy
CPT/HCPCS: 70450; 71045; 80053; 83690; 84484; 85025; 93005

== ENCOUNTER 2018-04-03 16:43 | Inpatient (IN) ==
[2018-04-03] MEDS ORDERED: Sod Chloride 0.9% Inj 1,000 ML IV.SIG SCH (17:15)
--- NOTE | 2018-04-03 17:22 | XR ---
EXAM DATE: 04/03/2018 5:16 PM EST AGE/SEX: 67 years / Female INDICATIONS: Syncopal episode. CLINICAL DATA: This is the patient's initial encounter. Patient reports that signs and symptoms have been present for 1 day and indicates a pain score of 0/10. MEDICAL/SURGICAL HISTORY: . Hypertension. Diabetes mellitus type 2. Hypothyroidism. . Tubal l igation. section. [place] [facility] [place]. . FINDINGS: Portable AP view of the chest demonstrates a normal-sized cardiac silhouette. No effusion, consolidat ion, or pneumothorax is identified. The bones and soft tissues demonstrate no acute finding. CONCLUSION: No acute cardiopulmonary abnormality is identified. Electronically signed by: Kevin Barfield MD Board Certified Radiologist 04/03/2018 5:21 PM EST
[2018-04-03 17:27] LABS: Baso # (Auto) 0.1 th/mm3 (0.0-0.2); Baso % (Auto) 0.6 % (0.0-2.0); Eos # (Auto) 0.1 th/mm3 (0.0-0.4); Eos % (Auto) 1.6 % (0.0-4.0); Hemoglobin 11.7 gm/dL (11.6-15.3); Lymph # (Auto) 1.7 th/mm3 (1.0-4.8); Mean Corpuscular HGB Conc 32.4 % (32.0-36.0); Mean Corpuscular Hemoglobin 26.6 pg (27.0-34.0); Mean Corpuscular Volume 82.1 fL (80.0-100.0); Mean Platelet Volume 7.1 fL (7.0-11.0); Mono # (Auto) 0.3 th/mm3 (0.0-0.9); Mono % (Auto) 3.9 % (0.0-8.0); Neut # (Auto) 6.6 th/mm3 (1.8-7.7); Neut % (Auto) 74.9 % (16.0-70.0); Platelet Count 358 th/mm3 (150-450); Red Blood Count 4.38 mil/mm3 (4.00-5.30); Red Cell Distribution Width 14.2 % (11.6-17.2); White Blood Count 8.7 th/mm3 (4.0-11.0)
[2018-04-03 17:48] LABS: Activated Partial Thrombo Time 18.8 sec (23.4-31.7); INR 1.1 Ratio; Prothrombin Time 10.9 sec (9.8-11.6)
[2018-04-03 17:59] LABS: Alanine Aminotransferase 31 U/L (10-53); Albumin 3.7 g/dL (3.4-5.0); Alkaline Phosphatase 110 U/L (45-117); Anion Gap 7 meq/L (5-15); Aspartate Aminotransferase 38 U/L (15-37); Blood Urea Nitrogen 10 mg/dL (7-18); Calcium 8.6 mg/dL (8.5-10.1); Carbon Dioxide 28.1 meq/L (21.0-32.0); Chloride 106 meq/L (98-107); Glomerular Filtration Rate 70 mL/min (>89); Glucose,Random 85 mg/dL (74-106); Lipase 125 U/L (73-393); Magnesium 1.7 mg/dL (1.5-2.5); Potassium 3.6 meq/L (3.5-5.1); Sodium 141 meq/L (136-145); Total Protein 7.5 g/dL (6.4-8.2)
[2018-04-03 18:00] LABS: Creatine Kinase 99 U/L (26-192)
--- NOTE | 2018-04-03 18:01 | ED ---
HPI General Chief Complaint: Syncope Stated Complaint: Syncopy Time Seen by Provider: 04/03/18 16:50 Source: patient and EMS Mode of arrival: EMS Limitations: no limitations History of Present Illness HPI narrative: 67-year-old female who presents to the ED for evaluation of syncope. Patient had a syncopal episode today while on the bathroom. Per the report I was given by EVAC and nurse apparently patient was having nausea vomiting diarrhea with some abdominal pain and apparently had a syncopal episode while being in the bathroom. She cannot recall what happened. She states that this has happened before. She states that she believes that she had something that upset her stomach. Per patient she is known to have problems with diarrhea secondary to Mayonnase ingestion and apparently had some today while having some salad today. She also does tell me that she was seen here a month ago for similar pain. Per patient has had diarrhea and abdominal pain on her lower belly for a few days but she is not very specific. Pain per patient currently is 2 out of 10. She does feel nauseous and she was given Zofran by EVAC. She states that her stools have been liquidy. She states having some chills but no fevers. She states that she was diagnosed with a infection and she was started on antibiotics. Denies any urinary issues. No chest pain or shortness of breath. Related Data Home Medications Medication Instructions Recorded Confirmed insulin glargine [Lantus U-100 10 unit SUBCUT DAILY 02/23/18 04/03/18 Insulin] levothyroxine 100 mcg PO DAILY 02/23/18 04/03/18 lisinopril 10 mg PO DAILY 02/23/18 04/03/18 Allergies Allergy/AdvReac Type Severity Reaction Status Date / Time No Known Allergies Allergy Verified 04/03/18 17:21 Review of Systems ROS: all other systems reviewed are negative [facility] Medical History Medical History Arthritis (Acute) Hypothyroidism (Acute) Diabetes (Acute) Hypertension (Acute) Surgical History Surgical History History of section (Acute) Social History Social History Substance History: No History of Abuse Second Hand Smoke Exposure: No Smoking Status: Never smoker How Often Do You Have a Drink Containing Alcohol: Never Recent Travel in [facility] within the Last 8 Weeks: No Recent Out of Country Travel within the Last 8 Weeks: No Immunization History Tetanus Immunization: Unsure Exam Narrative Exam Narrative: GENERAL: Well-appearing in no distress. SKIN: Focused skin assessment warm/dry. HEAD: Atraumatic. Normocephalic. EYES: Pupils equal and round 4 mm reactive to light and accommodation.. No scleral icterus. No injection or drainage. ENT: No nasal bleeding or discharge. Mucous membranes pink and moist. Tongue is midline. No Uvula deviation. NECK: Trachea midline. No JVD. CARDIOVASCULAR: Regular rate and rhythm. No murmur appreciated. RESPIRATORY: No accessory muscle use. Clear to auscultation. Breath sounds equal bilaterally. GASTROINTESTINAL: Abdomen soft, slightly tender with deep palpation on the right lower quadrant, nondistended. Hepatic and splenic margins not palpable. MUSCULOSKELETAL: No obvious deformities. No clubbing. No cyanosis. No edema. Full range of motion of the upper and lower extremities bilaterally. 2+ pulses bilaterally. NEUROLOGICAL: Awake and alert. No obvious cranial nerve deficits. Motor grossly within normal limits. Normal speech. PSYCHIATRIC: Appropriate mood and affect; insight and judgment normal. Course Initial Documented Vital Signs Temperature 97.8 F 04/03/18 17:16 Pulse Rate 78 04/03/18 17:16 Respiratory Rate 18 04/03/18 17:16 Blood Pressure 110/53 L 04/03/18 17:16 Pulse Oximetry 95 04/03/18 17:16 Last Documented Vital Signs Temperature 98.7 F 04/03/18 21:36 Pulse Rate 75 04/03/18 19:38 Respiratory Rate 18 04/03/18 19:38 Blood Pressure 135/63 04/03/18 19:38 Pulse Oximetry 97 04/03/18 19:38 Medical Decision Making WILLIAN Attestation WILLIAN supervised visit: Yes Attestation: I, Dr. Ray, have reviewed the advance practice practitioner's documentation and am in agreement, met with the patient face to face, made the diagnosis, and the medical decision making was done by me. The patient was initially evaluated by Mehran, the WILLIAN. Please see their complete history and physical. *My assessment and Findings: The patient presents with a reported history of having recurrence of abdominal pain that is generalized that began at approximately 3:30 PM today. The patient reports that she has had associated diarrhea and said prior to arrival she was sitting on the toilet and had a syncopal event while moving her bowels. The patient reports a prior history of diarrhea and abdominal pain similar to this. She reports that she was diagnosed with colitis and a colon polyp 2 years ago. The patient's abdominal exam is remarkable for tenderness on palpation in bilateral lower quadrants of the abdomen. No guarding, rebound, or rigidity on palpation. Decreased bowel sounds audible. During the course of the patient's emergency department visit, the patient's history, examination, and differential diagnosis were reviewed with the patient. The patient was placed on a bus driver/monitor with oximetry and frequent blood pressure monitoring. The patient had IV access obtained and blood work sent for analysis. The patient was initially provided normal saline 1 L IV fluid bolus. The patient's diagnostic studies were reviewed and remarkable for a white count of 8.7, hemoglobin 11.7, platelets 358 with neutrophils 74.9, PT PTT unremarkable, chemistry is remarkable for a GFR of 70, lactic acid is within normal limits at 1.8, AST is 38, troponin I is less than 0.02, CK within normal limits, lipase within normal limits. Urinalysis shows 30 protein hazy urine trace ketones small occult blood positive nitrate, moderate leukocyte esterase, 62 WBCs moderate WBCs clumps, many bacteria, culture indicated. The patient was given Zosyn 3.375 g IV. C. difficile toxin is negative. Chest x-ray showed no acute cardiopulmonary disease. CT scan of the abdomen and pelvis reveals a complex pericecal air containing right pelvic fluid collection measuring 5 x 6 cm and enlarged appendix is noted in this region, differential considerations include perforated appendicitis with pericecal abscess versus pericecal abscess with secondary inflammation of the appendix. Clinical correlation is recommended. Ill-defined 2 cm region of decreased enhancement in the mid left kidney is also noted. This could be related to an ill-defined mass or a focal area of pyelonephritis. The patient's case was discussed with the surgeon general surgeon pond worker by Mehran. The patient will be admitted to the hospital for continued evaluation and treatment. MDM Narrative Medical decision making narrative: 67-year-old female that presents to the ED for evaluation of syncope and diarrhea. Labs and imaging were ordered. Patient given fluids. Labs and imaging showed what appears to be perforated appendix versus abscess. Currently patient is not septic. Unclear as the etiology of this finding on CAT scan. I spoke with the general surgeon who agrees the patient should be admitted and start IV antibiotics. Unclear as to how long patient has had the symptoms but it seems like it might have been a couple of days. Dr. Noland for general surgery agrees the patient can be admitted to medicine and start IV antibiotics and n.p.o. after midnight for possible surgery versus drainage of the possible abscess by IR. Patient was told of results and agrees with plan. [facility] provider who agrees admission to their service. Medical Screen Exam Complete: Yes Emergency Medical Condition: Yes Differential Diagnosis Differential Diagnosis: Vasovagal episode versus syncope versus acute abdomen versus dehydration versus diarrhea Medical Records Medical records reviewed: Yes I reviewed the patient's medical records. Lab Data Lab results reviewed: Yes I reviewed the patient's lab results. Result diagrams: 04/03/18 17:15 04/03/18 17:15 Lab Results 04/03/18 04/03/18 04/03/18 Range/Units 17:00 17:15 17:15 WBC 8.7 (4.0-11.0) th/mm3 RBC 4.38 (4.00-5.30) mil/mm3 Hgb 11.7 (11.6-15.3) gm/dL Hct 36.0 (35.0-46.0) % MCV 82.1 (80.0-100.0) fL MCH 26.6 L (27.0-34.0) pg MCHC 32.4 (32.0-36.0) % RDW 14.2 (11.6-17.2) % Plt Count 358 (150-450) th/mm3 MPV 7.1 (7.0-11.0) fL Neut % (Auto) 74.9 H (16.0-70.0) % Lymph % (Auto) 19.0 (9.0-44.0) % Spink % (Auto) 3.9 (0.0-8.0) % Eos % (Auto) 1.6 (0.0-4.0) % Baso % (Auto) 0.6 (0.0-2.0) % Neut # (Auto) 6.6 (1.8-7.7) th/mm3 Lymph # (Auto) 1.7 (1.0-4.8) th/mm3 Spink # (Auto) 0.3 (0.0-0.9) th/mm3 Eos # (Auto) 0.1 (0.0-0.4) th/mm3 Baso # (Auto) 0.1 (0.0-0.2) th/mm3 WBC Differential . Differential Comment Auto diff final PT 10.9 (9.8-11.6) sec INR 1.1 Ratio APTT 18.8 L (23.4-31.7) sec Sodium (136-145) meq/L Potassium (3.5-5.1) meq/L Chloride (98-107) meq/L Carbon Dioxide (21.0-32.0) meq/L Anion Gap (5-15) meq/L BUN (7-18) mg/dL Creatinine (0.50-1.00) mg/dL Estimated GFR (>89) mL/min Random Glucose (74-106) mg/dL Lactic Acid (0.4-2.0) mmol/L Calcium (8.5-10.1) mg/dL Magnesium (1.5-2.5) mg/dL Total Bilirubin (0.2-1.0) mg/dL AST (15-37) U/L ALT (10-53) U/L Alkaline Phosphatase (45-117) U/L Total Creatine Kinase (26-192) U/L Troponin I (0.02-0.05) ng/mL Total Protein (6.4-8.2) g/dL Albumin (3.4-5.0) g/dL Lipase (73-393) U/L Urine Color (Yellw/Straw) Urine Clarity (Clear) Urine pH (5.0-8.5) Ur Specific [place] (1.002-1.035) Urine Protein (Neg-Trace) mg/dL Urine Glucose (UA) (Negative) mg/dL Urine Ketones (Negative) mg/dL Urine Occult Blood (Negative) Urine Nitrate (Negative) Urine Bilirubin (Negative) Urine Urobilinogen (Less than 2) mg/dL Ur Leukocyte Esterase (Negative) Urine RBC (0-3) /hpf Urine WBC (0-5) /hpf Urine WBC Clumps (None) Ur Squamous Epith Cells (0-5) /hpf Urine Bacteria (None) /hpf Hyaline Casts (0-3) /lpf Urine Mucus (Occasional) /lpf Micro UA Comment Ur Microscopic Review Urine Culture Comments Stl C.difficile DNA Amp Negative (Negative) St C. diff Tox Epid 027 Negative (Negative) 04/03/18 04/03/18 04/03/18 Range/Units 17:15 17:15 19:30 WBC (4.0-11.0) th/mm3 RBC (4.00-5.30) mil/mm3 Hgb (11.6-15.3) gm/dL Hct (35.0-46.0) % MCV (80.0-100.0) fL MCH (27.0-34.0) pg MCHC (32.0-36.0) % RDW (11.6-17.2) % Plt Count (150-450) th/mm3 MPV (7.0-11.0) fL Neut % (Auto) (16.0-70.0) % Lymph % (Auto) (9.0-44.0) % Spink % (Auto) (0.0-8.0) % Eos % (Auto) (0.0-4.0) % Baso % (Auto) (0.0-2.0) % Neut # (Auto) (1.8-7.7) th/mm3 Lymph # (Auto) (1.0-4.8) th/mm3 Spink # (Auto) (0.0-0.9) th/mm3 Eos # (Auto) (0.0-0.4) th/mm3 Baso # (Auto) (0.0-0.2) th/mm3 WBC Differential Differential Comment PT (9.8-11.6) sec INR Ratio APTT (23.4-31.7) sec Sodium 141 (136-145) meq/L Potassium 3.6 (3.5-5.1) meq/L Chloride 106 (98-107) meq/L Carbon Dioxide 28.1 (21.0-32.0) meq/L Anion Gap 7 (5-15) meq/L BUN 10 (7-18) mg/dL Creatinine 0.82 (0.50-1.00) mg/dL Estimated GFR 70 L (>89) mL/min Random Glucose 85 (74-106) mg/dL Lactic Acid 1.8 (0.4-2.0) mmol/L Calcium 8.6 (8.5-10.1) mg/dL Magnesium 1.7 (1.5-2.5) mg/dL Total Bilirubin 0.4 (0.2-1.0) mg/dL AST 38 H (15-37) U/L ALT 31 (10-53) U/L Alkaline Phosphatase 110 (45-117) U/L Total Creatine Kinase 99 (26-192) U/L Troponin I Less than 0.02 L (0.02-0.05) ng/mL Total Protein 7.5 (6.4-8.2) g/dL Albumin 3.7 (3.4-5.0) g/dL Lipase 125 (73-393) U/L Urine Color Dianne (Yellw/Straw) Urine Clarity Hazy H (Clear) Urine pH 5.0 (5.0-8.5) Ur Specific [place] 1.010 (1.002-1.035) Urine Protein 30 H (Neg-Trace) mg/dL Urine Glucose (UA) Negative (Negative) mg/dL Urine Ketones Trace H (Negative) mg/dL Urine Occult Blood Small H (Negative) Urine Nitrate Positive H (Negative) Urine Bilirubin Negative (Negative) Urine Urobilinogen Less than 2 (Less than 2) mg/dL Ur Leukocyte Esterase Moderate H (Negative) Urine RBC 2 (0-3) /hpf Urine WBC 62 H (0-5) /hpf Urine WBC Clumps Moderate H (None) Ur Squamous Epith Cells 3 (0-5) /hpf Urine Bacteria Many H (None) /hpf Hyaline Casts 5 (0-3) /lpf Urine Mucus Few H (Occasional) /lpf Micro UA Comment Culture indicated Ur Microscopic Review Not Reportable Urine Culture Comments Culture indicated Stl C.difficile DNA Amp (Negative) St C. diff Tox Epid 027 (Negative) Imaging Data Attestation: I personally reviewed and interpreted this imaging study as follows : Radiologist's impression: Chest X-Ray 04/03/18 17:01 CONCLUSION: No acute cardiopulmonary abnormality is identified. Abdomen/Pelvis CT 04/03/18 18:14 CONCLUSION: 1. Complex pericecal air-containing right pelvic fluid collection measuring 5.0 x 6.0 cm. An enlarged appendix is noted in this region. Differential considerations include perforated appendicitis with pericecal abscess versus pericecal abscess with secondary inflammation of the appendix. Clinical correlation is recommended. 2. Ill-defined 2 cm region of decreased enhancement in the mid left kidney. Although this may reflect focal transient enhancement abnormality, cannot exclude an ill-defined mass or less likely focal pyelonephritis. Consider renal mass protocol MRI examination on an outpatient basis. ECG Data Attestation: I personally reviewed and interpreted this ECG as follows: Interpretation: EKG shows sinus rhythm with no sign of acute ischemia or arrhythmia read by me and attending. Discharge Plan Discharge Disposition Patient Disposition: ED Admit(ED Internal Use Only) Discharge Order Discharge Orders: ED Use Only Admit Order (Routine); Ordered 04/03/18 Ordered By: Mehran Hanna Discharge Details Diagnosis: Perforated appendicitis Physicians Team ED Provider: Abbey Ray ED Midlevel Provider: Mehran Hanna Primary Care Provider: Kevin Ellison Attending Provider: Juan Luis Herndon Status ED Status: Admitted Patient
[2018-04-03 19:56] LABS: Bacteria,Urine Many /hpf; Bilirubin,Urine Negative (Negative); Clarity,Urine Hazy (Clear); Color,Urine Amber (Yellw/Straw); Glucose,Urine (UA) Negative (Negative); Hyaline Casts,Urine 5 /lpf (0-3); Leukocyte Esterase,Urine Moderate (Negative); Mucus,Urine Few /lpf (Occasional); Nitrite,Urine Positive (Negative); Squamous Epithelial Cell,Urine 3 /hpf (0-5)
--- NOTE | 2018-04-03 20:29 | CT ---
EXAM DATE: 04/03/2018 8:16 PM EST AGE/SEX: 67 years / Female INDICATIONS: Syncopal event while having a bowel movement. Generalized abdominal pain. CLINICAL DATA: This is the patient's initial encounter. Patient reports that signs and symptoms have been present for 1 day and indicates a pain score of 4/10. MEDICAL/SURGICAL HISTORY: Diabetes. Hypertension. States GI issues in the past. . C section ORAL CONTRAST: No oral contrast ingested. RADIATION DOSE: 6.71 CTDI (mGy) COMPARISON: [facility] [place], CT ABDOMEN & PELVIS W CONTRAST, 05/22/2016. . TECHNIQUE: Multiple contiguous axial images were obtained through the abdomen and pelvis following b olus infusion of 100ml ml Omnipaque 350 (iohexol) nonionic water-soluble contrast as a single exam dose. No oral contrast ingested. Using automated exposure control and adjustment of the mA and/or kV according to patient size, radiation dose was kept as low as reasonably achievable to obtain optimal diagnostic quality images. DICOM format image data is available electronically for review and keysha rison. FINDINGS: LOWER LUNGS: The visualized lower lungs are clear. LIVER: The liver has a homogeneous density without space-occupying lesion. There is no dilation of t he biliary tree. SPLEEN: Homogeneous density without enlargement. PANCREAS: Unremarkable without mass or calcification. KIDNEYS: Ill-defined 2 x 1.6 cm region of decreased enhancement extending from the cortex to the pel vis in the mid left kidney not present on prior exam. Kidneys otherwise demonstrate symmetrical enhan cement without radiopaque renal calculi or hydronephrosis. ADRENAL GLANDS: Unremarkable. AORTA: Jenny-aneurysmal. BOWEL/MESENTERY: There is a 5.0 x 6.0 cm air-containing fluid collection in the right pelvis medial to the cecum. There is a 10 mm tubular structure extending to this region concerning for an enlarged appendix. Proximal bowel loops are normal in caliber without evidence for obstruction. There is no pn eumatosis. ABDOMINAL WALL: Intact. RETROPERITONEUM: No evidence of adenopathy in the retrocrural, para-aortic, or deep pelvic regions. BLADDER: Contours are smooth. REPRODUCTIVE: No abnormal masses or calcifications seen. BONY STRUCTURES: Unremarkable. CONCLUSION: 1. Complex pericecal air-containing right pelvic fluid collection measuring 5.0 x 6.0 cm. An enlarge d appendix is noted in this region. Differential considerations include perforated appendicitis with pericecal abscess versus pericecal abscess with secondary inflammation of the appendix. Clinical adrian elation is recommended. 2. Ill-defined 2 cm region of decreased enhancement in the mid left kidney. Although this may reflec t focal transient enhancement abnormality, cannot exclude an ill-defined mass or less likely focal py elonephritis. Consider renal mass protocol MRI examination on an outpatient basis. Electronically signed by: Judd Camara MD Board Certified Radiologist 04/03/2018 8:28 PM EST
[2018-04-03] MEDS ORDERED: Piperacil/Tazo 3.375 GM Premix 3.375 GM/50 ML PIGGYBACK IV.SIG ONE (20:47)
[2018-04-03] MEDS ORDERED: Bisacodyl 10 MG Supp RECTAL PRN (21:42)
[2018-04-03] MEDS ORDERED: Acetaminophen 325 MG Tablet PO PRN (21:42)
[2018-04-03] MEDS ORDERED: Sod Chloride 0.9% Inj 1,000 ML IV.CONT SCH (21:45)
[2018-04-03] MEDS ORDERED: Morphine Sulfate Inj 2 MG/ML Vial IV.PUSH PRN (21:47)
[2018-04-03] MEDS ORDERED: Dextrose 50% in Water 50 ML Vial IV.PUSH ONE (22:38)
[2018-04-03] MEDS ORDERED: Dextrose 50% in Water 50 ML Vial IV.PUSH PRN ×2 (22:39→22:55)
[2018-04-04] MEDS: Dextrose 5%/NaCl 0.9% Inj 1,000 ML IV.CONT SCH ×3 (00:27→23:30)
[2018-04-04] MEDS: Insulin NovoLOG Aspart Correctional Sugar Inj SQ SCH ×5 (00:27→23:42)
[2018-04-04 05:29] LABS: Hematocrit 31.9 % (35.0-46.0); Hemoglobin 10.4 gm/dL (11.6-15.3); Mean Corpuscular HGB Conc 32.6 % (32.0-36.0); Mean Corpuscular Hemoglobin 26.2 pg (27.0-34.0); Mean Corpuscular Volume 80.5 fL (80.0-100.0); Mean Platelet Volume 7.1 fL (7.0-11.0); Platelet Count 350 th/mm3 (150-450); Red Blood Count 3.96 mil/mm3 (4.00-5.30); Red Cell Distribution Width 14.3 % (11.6-17.2); White Blood Count 18.5 th/mm3 (4.0-11.0)
[2018-04-04 05:44] LABS: Calcium 8.7 mg/dL (8.5-10.1); Carbon Dioxide 24.1 meq/L (21.0-32.0); Potassium 3.6 meq/L (3.5-5.1)
[2018-04-04] MEDS: Piperacil/Tazo 3.375 GM Premix 3.375 GM/50 ML PIGGYBACK IV.SIG SCH ×4 (06:07→23:33)
--- NOTE | 2018-04-04 07:11 | MB ---
cc: Francis Noland MD DATE: 04/04/2018 PHYSICIAN REQUESTING CONSULTATION: Dr. Ray and also CLARE Greene. REASON FOR CONSULTATION: Pelvic abscess, possible perforated appendicitis. HISTORY OF PRESENT ILLNESS: The patient is a 67-year-old female who presented to the emergency department with syncope. The patient was brought by EMS for syncope. The patient states that she has developed several days of nausea, vomiting, and diarrhea with increasing abdominal pain. She developed syncope in the bathroom today. She says this has happened in the past and she underwent a workup for this in 2017 including colonoscopy, which was essentially unremarkable. The patient does report chronic constipation with almost daily attempts to treat herself for bowel movements. The patient states the pain is a 2/10. The patient underwent evaluation in the emergency department, which did show a white blood cell count 8.7, hemoglobin 11.7. CT scan shows a complex pericecal air-containing pelvic fluid collection 5 x 6 cm. General Surgery was consulted. The patient was admitted to medicine service and placed on IV antibiotics. REVIEW OF SYSTEMS: A 12-point review of systems conducted with the patient is negative except for the pertinent positives mentioned above in history of present illness. PAST MEDICAL HISTORY: Arthritis, hypothyroidism, diabetes, hypertension. PAST SURGICAL HISTORY: section through a lower midline incision. ALLERGIES: NO KNOWN DRUG ALLERGIES. MEDICATIONS: Lantus, levothyroxine, lisinopril. SOCIAL HISTORY: The patient denies alcohol, tobacco, or illicit drug use. FAMILY HISTORY: Reviewed, noncontributory. PHYSICAL EXAMINATION: VITAL SIGNS: Temperature 97.8 degrees, pulse 78, blood pressure 110/53, O2 saturation 95%. GENERAL: The patient is a well-developed well-nourished patient in no acute distress. She does not appear acutely or chronically ill. HEENT: Head normocephalic, atraumatic. Oral cavity is clear. Airway is patent. NECK: Supple. No JVD. No lymphadenopathy. LUNGS: Breath sounds present bilaterally. Nonlabored breathing pattern. HEART: Regular rate and rhythm. No murmurs. ABDOMEN: Soft and nontender to palpation. No organomegaly. No ascites. Midline incision lower midline is well healed without hernia. There is no peritonitis or rebound tenderness. Normal bowel sounds. BACK: No CVA tenderness. EXTREMITIES: No clubbing, cyanosis, or edema. NEUROLOGIC: The patient is alert and oriented x 3. Nonfocal peripheral exam. Cranial nerves 2-12 are grossly intact. ASSESSMENT AND PLAN: The patient is a 67-year-old female with pelvic abscess uncertain etiology. The patient did have a colonoscopy [address] Marshall. She is found to have colitis of the descending colon and a polypectomy was performed. She had internal hemorrhoids. There was no mention of diverticulosis. Abscess source would likely be diverticulitis versus appendicitis. Currently, this abscess appears to be mature and well defined. The patient is not septic. Either if this is diverticulitis or appendicitis with mature abscess, I would recommend nonoperative management with IV antibiotics and IV drainage. If the patient responds to nonoperative management, she will likely need another colonoscopy and we also will consider colorectal surgery consultation for the patient's potential complicated pelvic disease and for long-term recommendations in this patient. If the patient develops worsening sepsis, she may require emergency surgery, which would likely be in the form of abdominal abscess drainage with diverting colostomy. Again, thank you very much for this consultation. We will follow along closely with this patient. Francis Noland MD AWG/rs , 05:48 AM , 05:57 AM
[2018-04-04 07:45] LABS: Lymphocytes 3 % (9-44); Monocytes 2 % (0-8)
[2018-04-04 07:46] LABS: Platelet Estimate Normal (Normal); Platelet Morphology Normal (Normal)
--- NOTE | 2018-04-04 11:57 | P.HPIM ---
History of Present Illness Primary Care Physician: Kevin Ellison MD Chief Complaint: I passed out History of Present Illness: 67-year-old pleasant female with a history of hypothyroidism, insulin-dependent diabetes mellitus, hypothyroidism who presented to the emergency room after a syncope episode happened yesterday afternoon as she developed nausea, nonbilious vomiting and diarrhea in the bathroom. She reports the syncope episode was witnessed by her daughter who states that she was out for a few minutes. When she came to she was not confused was able to move her arms and legs and did not have any bladder or bowel incontinence. She reports developing mid sharp abdominal pain with bandlike radiation associated with her nausea and vomiting yesterday. She initially had attributed to her macaroni salad in which she had assumed had bad mayonnaise in it. She denies any underlying chills or fever. She states that she had a colonoscopy performed 2 years ago due to some rectal bleeding and had only findings of polyp which was removed. She denies any bloody stools or black tarry stools and her loose stools. Inpatient Certification Inpatient Certification: I certify that the inpatient services were ordered in accordance with Medicare regulations governing the order. This includes certification that hospital inpatient services are reasonable and necessary and in the case of services not specified as inpatient-only under 42 CFR 419.22(n), that they are appropriately provided as inpatient services in accordance to with the 2-midnight benchmark under 43 CFR 412.3(e) Estimated Total Length of Stay (Days): 2 Plans for Post Hospital Care: Home Review of Systems Constitutional: Reports as per HPI, Denies chills, Denies fatigue, Denies fever( s), Denies headache(s) and Denies poor appetite Eyes: Denies blurry vision, Denies change in vision and Denies eye pain Ears, Nose, Mouth, and Throat: Denies abnormal hearing, Denies headache(s), Denies mouth pain, Denies nasal congestion, Denies neck pain and Denies sore throat Cardiovascular: Denies chest pain, Denies pedal edema, Denies palpitations and Denies dyspnea Respiratory: Denies cough and Denies dyspnea Gastrointestinal: Reports as per HPI, Reports abdominal pain, Denies constipation, Reports diarrhea, Reports loose stools, Reports nausea and Reports vomiting Musculoskeletal: Denies back pain, Denies myalgias, Denies arthralgias, Denies neck pain and Denies numbness Skin/Breast: Denies new lesions and Denies rash Neurologic: Denies abnormal hearing, Denies dizziness, Reports syncope, Denies headache(s), Denies focal weakness, Denies memory loss and Denies numbness Psychiatric: Denies anxiety, Denies depression and Denies memory loss Endocrine: Denies cold intolerance, Denies heat intolerance and Denies palpitations Hematologic/Lymphatic: Denies easy bleeding and Denies easy bruising [facility] Medical History Medical History Arthritis (Chronic) Hypothyroidism (Chronic) Diabetes (Chronic) Hypertension (Chronic) Surgical History Surgical History History of section (Chronic) Social History Social History Substance History: No History of Abuse Second Hand Smoke Exposure: No Smoking Status: Never smoker How Often Do You Have a Drink Containing Alcohol: Never Recent Travel in [facility] within the Last 8 Weeks: No Recent Out of Country Travel within the Last 8 Weeks: No Immunization History Tetanus Immunization: Unsure Medications and Allergies Allergies Allergy/AdvReac Type Severity Reaction Status Date / Time No Known Allergies Allergy Verified 04/03/18 17:21 Home Medications Medication Instructions Recorded Confirmed Type insulin glargine [Lantus U-100 10 unit SUBCUT DAILY 02/23/18 04/03/18 History Insulin] levothyroxine 100 mcg PO DAILY 02/23/18 04/03/18 History lisinopril 10 mg PO DAILY 02/23/18 04/03/18 History Active Medications: Active Medications Acetaminophen (Tylenol) 650 mg PO Q4H PRN PRN Reason: Temp > 100.4 Last Admin: 04/04/18 00:43 Dose: 650 mg Al Hydroxide/Mg Hydroxide (Milk Of Magnvidal Liq) 30 ml PO Q12H PRN PRN Reason: Mild Constipation Bisacodyl (Dulcolax Supp) 10 mg RECTAL DAILY PRN PRN Reason: SEVERE CONSITIPATION Dextrose (D50w Vial) 50 ml IV.PUSH UNSCH PRN PRN Reason: PER HYPOGLYCEMIA PROTOCOL Glucagon (Glucagon Inj) 1 mg OTHER PRN PRN PRN Reason: for Hypoglycemia Protocol Piperacillin/Tazobactam/Dextrose (Zosyn 3.375 Gm Premix) 3.375 gm in 50 mls @ 100 mls/hr IV.SIG Q6H [facility] Last Infusion: 04/04/18 11:46 Dose: Infused Metronidazole/Sodium Chloride (Flagyl 250 Mg Inj) 50 mls @ 100 mls/hr IV.SIG Q6H [facility] Last Infusion: 04/04/18 10:28 Dose: Infused Dextrose/Sodium Chloride (D5w/Normal Saline Inj) 1,000 mls @ 84 mls/hr IV.CONT .[id number] [facility] Last Admin: 04/04/18 11:47 Dose: 84 mls/hr Insulin Aspart (Novolog Insulin Correctional Sugar Inj) 0 unit SQ Q6HR [facility]; Protocol Last Admin: 04/04/18 11:46 Dose: Not Given Lactulose (Lactulose Liq) 30 ml PO DAILY PRN PRN Reason: SEVERE CONSITIPATION Morphine Sulfate (Morphine Inj) 2 mg IV.PUSH Q3H PRN PRN Reason: pain 1 to 10 Ondansetron HCl (Zofran Inj) 4 mg IV.PUSH Q6H PRN PRN Reason: NAUSEA OR VOMITING Sennosides (Senokot) 17.2 mg PO Q12H PRN PRN Reason: Moderate Constipation Sodium Chloride (Ns Flush) 2 ml IV.FLUSH BID [facility] Last Admin: 04/04/18 08:05 Dose: Not Given Sodium Chloride (Ns Flush) 2 ml IV.FLUSH PRN PRN PRN Reason: FLUSH AFTER USING IV ACCESS Physical Exam Vital signs: Vital Signs 04/03/18 17:16 04/03/18 19:38 04/03/18 21:36 Temperature 97.8 F 98.7 F Pulse Rate 78 75 Respiratory Rate 18 18 Blood Pressure 110/53 L 135/63 Pulse Oximetry 95 97 04/03/18 22:16 04/04/18 00:05 04/04/18 07:09 Temperature 99.9 F H Pulse Rate 73 78 78 Respiratory Rate 18 18 18 Blood Pressure 153/66 H 163/68 H 124/60 Pulse Oximetry 96 97 97 04/04/18 09:24 04/04/18 11:22 Temperature Pulse Rate 75 85 Respiratory Rate 18 18 Blood Pressure 161/65 H 158/65 H Pulse Oximetry 97 96 Intake & Output 04/03/18 04/04/18 04/04/18 18:59 06:59 18:59 Intake Total 1200 / 1200 1150 / 1150 Balance 1200 / 1200 1150 / 1150 Weight 54.431 kg Intake: IV 1200 / 1200 1150 / 1150 D5W/Normal Saline Inj 1,000 ML 1000 / 1000 @ 84 mls/hr IV.CONT .[id number] [facility] Rx#:[id number] Zosyn 3.375 GM Premix 3.375 gm 50 / 50 100 / 100 In 50 ml @ 100 mls/hr IV.SIG Q6H [facility] Rx#:[id number] NS Inj 1,000 ML @ 1000 mls/hr 1000 / 1000 IV.SIG BOLUS [facility] Rx#:[id number] Flagyl 250 mg Inj 50 ML @ 100 50 / 50 50 / 50 mls/hr IV.SIG Q6H [facility] Rx#: [id number] Flagyl 500 MG Inj 100 ML @ 100 100 / 100 mls/hr IV.SIG ONCE ONE Rx#: [id number] Narrative: GENERAL: Well-nourished well-developed pleasant female laying in bed in the emergency room SKIN: Warm and dry. HEAD: Atraumatic. Normocephalic. EYES: Pupils equal and round. No scleral icterus. No injection or drainage. ENT: No nasal bleeding or discharge. Mucous membranes pink and moist. NECK: Trachea midline. No JVD. CARDIOVASCULAR: Regular rate and rhythm. RESPIRATORY: No accessory muscle use. Clear to auscultation. Breath sounds equal bilaterally. GASTROINTESTINAL: Abdomen soft, mild tenderness over the right lower quadrant with no rebound or guarding, slight mild distention, midline lower surgical scar normoactive bowel sounds MUSCULOSKELETAL: Extremities without clubbing, cyanosis, or edema. No obvious deformities. NEUROLOGICAL: Awake and alert to person place time situation. No obvious cranial nerve deficits. Motor grossly within normal limits. Five out of 5 muscle strength in the arms and legs. Normal speech. PSYCHIATRIC: Appropriate mood and affect; insight and judgment normal. Results Labs CBC & Chem 7: 04/04/18 04:10 04/04/18 04:10 Imaging Impressions Chest X-Ray 04/03/18 17:01 CONCLUSION: No acute cardiopulmonary abnormality is identified. Abdomen/Pelvis CT 04/03/18 18:14 CONCLUSION: 1. Complex pericecal air-containing right pelvic fluid collection measuring 5.0 x 6.0 cm. An enlarged appendix is noted in this region. Differential considerations include perforated appendicitis with pericecal abscess versus pericecal abscess with secondary inflammation of the appendix. Clinical correlation is recommended. 2. Ill-defined 2 cm region of decreased enhancement in the mid left kidney. Although this may reflect focal transient enhancement abnormality, cannot exclude an ill-defined mass or less likely focal pyelonephritis. Consider renal mass protocol MRI examination on an outpatient basis. Caprini VTE Risk Assessment Caprini VTE Risk Assessment: Moderate/High Risk (score >= 2) Caprini Risk Assessment Model: Point Value = 1 Point Value = 2 Point Value = 3 Point Value = 5 Age 41-60 Minor surgery BMI > 25 kg/m2 Swollen legs Varicose veins or History of unexplained or recurrent spontaneous Oral contraceptives or hormone replacement Sepsis (< 1 month) Serious lung disease, including pneumonia (< 1 month) Abnormal pulmonary function Acute myocardial infarction Congestive heart failure (< 1 month) History of inflammatory bowel disease Medical patient at bed rest Age 61-74 Arthroscopic surgery Major open surgery (> 45 min) Laparoscopic surgery (> 45 min) Malignancy Confined to bed (> 72 hours) Immobilizing plaster cast Central venous access Age >= 75 History of VTE Family history of VTE Factor V Leiden Prothrombin [id number] Lupus anticoagulant Anticardiolipin antibodies Elevated serum homocysteine Heparin-induced thrombocytopenia Other congenital or acquired thrombophilia Stroke (< 1 month) Elective arthroplasty Hip, pelvis, or leg fracture Acute spinal cord injury (< 1 month) Prophylaxis Regimen: Total Risk Factor Score Risk Level Prophylaxis Regimen 0-1 Low Early ambulation 2 Moderate Order ONE of the following: *Sequential Compression Device (SCD) *Heparin 5000 units SQ BID 3-4 Higher Order ONE of the following medications: *Heparin 5000 units SQ TID *Enoxaparin/Lovenox 40 mg SQ daily (WT < 150 kg, CrCl > 30 mL/min) *Enoxaparin/Lovenox 30 mg SQ daily (WT < 150 kg, CrCl > 10-29 mL/min) *Enoxaparin/Lovenox 30 mg SQ BID (WT < 150 kg, CrCl > 30 mL/min) AND/OR *Sequential Compression Device (SCD) 5 or more Highest Order ONE of the following medications: *Heparin 5000 units SQ TID (Preferred with Epidurals) *Enoxaparin/Lovenox 40 mg SQ daily (WT < 150 kg, CrCl > 30 mL/min) *Enoxaparin/Lovenox 30 mg SQ daily (WT < 150 kg, CrCl > 10-29 mL/min) *Enoxaparin/Lovenox 30 mg SQ BID (WT < 150 kg, CrCl > 30 mL/min) AND *Sequential Compression Device (SCD) Assessment and Plan Plan 67-year-old female with a history of insulin-dependent diabetes mellitus, hypertension, thyroidism presents with nausea vomiting diarrhea and syncope Acute pelvic abscess suspect perforated appendicitis versus pericecal abscess - general surgery consultation, keep n.p.o. with supportive care, IV antibiotics Zosyn and Flagyl. Continue pain control. Incidental finding of ill-defined 2 cm decrease in enhancement of the mid left kidney on CT, rule out mass-outpatient renal mass protocol MRI when abscess treated. Syncope episode likely vasovagal from nausea vomiting diarrhea-telemetry monitoring, IV fluid hydration, orthostatics Insulin-dependent diabetes mellitushold Lantus for now due to n.p.o. status, continue to monitor blood sugars with sliding scale insulin. Hypothyroidism resume home levothyroxine Hypertension-resume home antihypertensives. DVT prophylaxisSCDs PT consult to evaluate and treat
[2018-04-04] MEDS ORDERED: Naloxone Inj 0.4 MG/ML Vial IV.PUSH PRN (12:15)
[2018-04-04] MEDS ORDERED: Acetaminophen 325 MG Tablet PO PRN (12:15)
[2018-04-04] MEDS ORDERED: Morphine Sulfate Inj 2 MG/ML Vial IV.PUSH PRN (12:16)
[2018-04-04] MEDS ORDERED: fentaNYL Citrate Inj 250 MCG/5 ML Ampul ONE (13:44)
[2018-04-04] MEDS: Lisinopril 10 MG Tablet PO SCH (13:45)
[2018-04-04] MEDS ORDERED: Sod Phosphate/Sod Biphosphate (Adult) Enema 133 ML Bottle RECTAL ONE (15:00)
--- NOTE | 2018-04-04 15:36 | P.RAD ---
Post CT Procedure Prog Note - Pre Procedure Diagnosis (1) Pelvic fluid collection - Post Procedure Diagnosis (1) Free fluid in pelvis - Procedure Information Procedure Date: 04/04/18 Supervising Radiologist: Edy Alvarez Jr, MD Proceduralist/Assist: Willi Cui Estimated blood loss (mL): 0 Anesthesia: Conscious Sedation - Plan of Activity Patient to Unit: ROPU Patient condition: Good See PACS Report for procedural detail/treatment. Drainage Procedure CT Aspiration Fluid Removal (CCs): 0 Findings: Under CT guidance a 19G needle was passed into a pocket of predominately air within the deep pelvis. This was originally thought to be a contained collection of air and fluid. A wire was passed into the needle and freely passed throughout the peritoneal space. No loculated fluid collection. The previously seen fluid is all anterior in the pelvis. No sample able to be obtained. Needle and wire were removed. Plan: F/U CT to see if a true loculated fluid collection occurs that would warrant drainage. Currently just free fluid.
[2018-04-04] MEDS ORDERED: Lidocaine 1%/Epinephrine 1:100,000 Inj 20 ML Vial I-DERMAL ONE (15:48)
--- NOTE | 2018-04-04 15:59 | CT ---
EXAM DATE: 04/04/2018 3:45 PM EST AGE/SEX: 67 years / Female INDICATIONS: Pelvic fluid collection concerning for an abscess. Percutaneous drainage requested.. CLINICAL DATA: This is the patient's initial encounter. Patient reports that signs and symptoms have been present for 1 day and indicates a pain score of 5/10. MEDICAL/SURGICAL HISTORY: Hypertension. Hypothyroidism. Diabetes. section. COMPARISON: [facility] [place], CT ABDOMEN & PELVIS W CONTRAST, 04/03/2018. . SEDATION TIME (min): 30 BIOPSY SITE: Pelvic abscess MEDICATION(S): 2mg midazolam (Versed) IV 100mcg fentanyl (Sublimaze) IV DEVICE(S): 19 gauge Introducer FLUID: Total volume of of fluid was removed. . . . PROCEDURE : CT guided drainage of the Pelvic abscess. Conscious sedation with continuous EKG and oximetry monitoring. EKG and oximetry remained stable throughout the procedure. I reviewed the patient's prior CT 05/01/2018. A fluid collection deep within the pelvis measuring appr oximately 6 x 5 cm directly adjacent to the rectosigmoid colon was targeted during this aspiration. T he risks, benefits and alternatives to the procedure were explained and verbal and written consent wa s obtained. Using automated exposure control and adjustment of the mA and/or kV according to patient size, radiation dose was kept as low as reasonably achievable to obtain optimal diagnostic quality im ages. The site was prepped in sterile fashion. Full sterile technique was used, including cap, mas k, sterile gloves and gown and a large sterile sheet. Hand hygiene and 2% chlorhexidine and/or betad ine/alcohol prep was utilized per protocol for cutaneous antisepsis. The skin and subcutaneous tissu es were infiltrated with local anesthetic solution. DICOM format image data is available [facility]a [facility] for review and comparison. Dilute rectal contrast was instilled at the start of the procedure. Using CT guidance a 19-gauge need le was passed via right parasacral approach into a pocket of air that measures 3.5 x 2.0 cm directly anterior to the rectum not felt to be intraluminal. Fluid is seen within the anterior pelvis clearly freely flowing. Once the wire was placed into the air aspiration yielded no fluid. A 0.035 wire was p assed and this freely coursed into the peritoneal cavity. This is clearly not a loculated collection. Aspiration did not yield any fluid. The needle and wire were removed. The patient tolerated the procedure well and there were no complications. The patient tolerated the procedure well and there were no complications. The patient was sent to post anesthesia recovery in s table condition. FINDINGS: Collection within the pelvis which is a mixture of small volume air and fluid is not loculated and no t drainable with percutaneous drainage. CONCLUSION: 1. Collection within the pelvis there is freely flowing fluid and a small volume of air. No loculate d abscess observed. Electronically signed by: Edy Alvarez MD Board Certified Radiologist 04/04/2018 3:58 PM EST
--- NOTE | 2018-04-04 22:14 | ECG ---
Date Performed: 04/03/2018 Time Performed: 17:26:00 PTAGE: 67 years EKG: Sinus rhythm NONSPECIFIC T-WAVE ABNORMALITY BORDERLINE ECG PREVIOUS TRACING : 02/23/2018 11.15 Since the previous tracing, no significant change noted DOCTOR: Reece Hurst Interpretating Date/Time 04/04/2018 22:12:02
[2018-04-05] MEDS: Piperacil/Tazo 3.375 GM Premix 3.375 GM/50 ML PIGGYBACK IV.SIG SCH ×4 (05:01→22:37)
[2018-04-05] MEDS: Insulin NovoLOG Aspart Correctional Sugar Inj SQ SCH ×3 (06:00→18:24)
[2018-04-05] MEDS: Levothyroxine 100 MCG Tablet PO SCH (06:01)
[2018-04-05 07:15] LABS: Baso % (Auto) 0.4 % (0.0-2.0); Eos # (Auto) 0.2 th/mm3 (0.0-0.4); Eos % (Auto) 1.3 % (0.0-4.0); Hematocrit 30.2 % (35.0-46.0); Hemoglobin 9.7 gm/dL (11.6-15.3); Lymph # (Auto) 0.9 th/mm3 (1.0-4.8); Lymph % (Auto) 7.5 % (9.0-44.0); Mean Corpuscular Hemoglobin 26.3 pg (27.0-34.0); Mean Corpuscular Volume 82.1 fL (80.0-100.0); Mean Platelet Volume 7.1 fL (7.0-11.0); Mono # (Auto) 0.6 th/mm3 (0.0-0.9); Mono % (Auto) 5.1 % (0.0-8.0); Neut # (Auto) 10.5 th/mm3 (1.8-7.7); Neut % (Auto) 85.7 % (16.0-70.0); Platelet Count 300 th/mm3 (150-450); Red Blood Count 3.68 mil/mm3 (4.00-5.30); Red Cell Distribution Width 14.8 % (11.6-17.2); White Blood Count 12.2 th/mm3 (4.0-11.0)
[2018-04-05 07:45] LABS: Anion Gap 7 meq/L (5-15); Calcium 8.6 mg/dL (8.5-10.1); Carbon Dioxide 25.3 meq/L (21.0-32.0); Chloride 111 meq/L (98-107); Glomerular Filtration Rate Greater Than 89 mL/min (>89); Glucose,Random 231 mg/dL (74-106); Potassium 3.7 meq/L (3.5-5.1); Sodium 143 meq/L (136-145)
[2018-04-05 07:47] LABS: Blood Urea Nitrogen 5 mg/dL (7-18)
[2018-04-05] MEDS: Lisinopril 10 MG Tablet PO SCH (09:29)
--- NOTE | 2018-04-05 12:11 | P.PNIM ---
Subjective Interval history: Follow-up for intra-abdominal abscess. IR was not able to drain abscess. Patient is currently doing well. Denies any chest pain, shortness of breath, fever or chills. She denies any abdominal pain. Currently on clear liquid diet. Physical Exam Vital signs: Vital Signs 04/04/18 15:45 04/04/18 16:00 04/04/18 20:00 Temperature 98.6 F 97.8 F Pulse Rate 90 88 95 H Respiratory Rate 18 18 16 Blood Pressure 154/52 H 159/65 H 154/67 H Pulse Oximetry 92 L 93 L 96 04/05/18 00:00 04/05/18 04:00 04/05/18 08:00 Temperature 97.9 F 98.6 F 98.6 F Pulse Rate 78 82 80 Respiratory Rate 16 16 18 Blood Pressure 133/60 154/62 H 152/69 H Pulse Oximetry 99 95 95 Intake & Output 04/04/18 04/05/18 04/05/18 18:59 06:59 18:59 Intake Total 1250 / 1250 1200 / 1200 Balance 1250 / 1250 1200 / 1200 Weight 51.8 kg 52.2 kg Intake: IV 1250 / 1250 1200 / 1200 D5W/Normal Saline Inj 1,000 ML 1000 / 1000 1000 / 1000 @ 84 mls/hr IV.CONT .[id number] [facility] Rx#:[id number] Zosyn 3.375 GM Premix 3.375 gm 150 / 150 100 / 100 In 50 ml @ 100 mls/hr IV.SIG Q6H [facility] Rx#:[id number] Flagyl 250 mg Inj 50 ML @ 100 100 / 100 100 / 100 mls/hr IV.SIG Q6H [facility] Rx#: [id number] Other: # Voids 2 Weight On Admission 54.431 kg Narrative: GENERAL: Well-nourished, well-developed patient. SKIN: Warm and dry. HEAD: Normocephalic. EYES: No scleral icterus. No injection or drainage. NECK: Supple, trachea midline. No JVD or lymphadenopathy. CARDIOVASCULAR: Regular rate and rhythm without murmurs, gallops, or rubs. RESPIRATORY: Breath sounds equal bilaterally. No accessory muscle use. GASTROINTESTINAL: Abdomen soft, non-tender, nondistended. MUSCULOSKELETAL: No cyanosis, or edema. BACK: Nontender without obvious deformity. No CVA tenderness. Results Labs CBC & Chem 7: 04/05/18 06:31 04/05/18 06:31 Labs: Microbiology 04/03/18 19:30 Clean Catch Urine Urine Culture - Final Escherichia coli Imaging Imaging: Impressions Abscess Drainage CT 04/04/18 00:00 CONCLUSION: 1. Collection within the pelvis there is freely flowing fluid and a small volume of air. No loculated abscess observed. Assessment and Plan Plan Ms. Allan is a pleasant 67-year-old female with a history of hypothyroidism, diabetes mellitus who presented to the emergency department on 04/03/2018 due to nausea, vomiting, diarrhea and a syncopal episode. She was complaining of mid abdominal sharp pain. CT scan showed intra-abdominal abscess. General surgery was consulted. IR was unable to drain the abscess. Intra-abdominal abscess Discontinue Levaquin and Flagyl and continue Zosyn 3.375 g every 6 hours Discussed with general surgery. General surgery is planning to discuss with colorectal surgery for an evaluation. We will probably need additional 24-48 hours IV antibiotics. CBC in the morning. If patient remains a stable, we can consider Augmentin or Levaquin plus Flagyl p.o. upon discharge. -Percocet, Morphine PRN for pain. Syncope -Possibly due to volume depletion due to N/V, Diarrhea. -Received IV fluid. Currently asymptomatic, continue clear liquid diet. Diabetes mellitus -Start Levemir 10 units QHS and continue sliding scale insulin. Goal blood glucose [id number]. Hypothyroidism -continue levothyroxine 100 mcg daily. Full code. SCDs. Progress Note: Quality VTE Deep Vein Thrombosis/Pulmonary Embolism Present on Admission: No
--- NOTE | 2018-04-05 14:16 | P.PNGS ---
Subjective Interval history: Resting in bed Feeling much better today Physical Exam Vital signs: Vital Signs 04/04/18 15:45 04/04/18 16:00 04/04/18 20:00 Temperature 98.6 F 97.8 F Pulse Rate 90 88 95 H Respiratory Rate 18 18 16 Blood Pressure 154/52 H 159/65 H 154/67 H Pulse Oximetry 92 L 93 L 96 04/05/18 00:00 04/05/18 04:00 04/05/18 08:00 Temperature 97.9 F 98.6 F 98.6 F Pulse Rate 78 82 80 Respiratory Rate 16 16 18 Blood Pressure 133/60 154/62 H 152/69 H Pulse Oximetry 99 95 95 04/05/18 11:40 Temperature 98.8 F Pulse Rate 86 Respiratory Rate 16 Blood Pressure 157/70 H Pulse Oximetry 95 Intake & Output 04/04/18 04/05/18 04/05/18 18:59 06:59 18:59 Intake Total 1250 / 1250 1200 / 1200 100 / 100 Balance 1250 / 1250 1200 / 1200 100 / 100 Weight 51.8 kg 52.2 kg Intake: IV 1250 / 1250 1200 / 1200 100 / 100 D5W/Normal Saline Inj 1,000 ML 1000 / 1000 1000 / 1000 @ 84 mls/hr IV.CONT .[id number] [facility] Rx#:[id number] Zosyn 3.375 GM Premix 3.375 gm 150 / 150 100 / 100 50 / 50 In 50 ml @ 100 mls/hr IV.SIG Q6H [facility] Rx#:[id number] Flagyl 250 mg Inj 50 ML @ 100 100 / 100 100 / 100 50 / 50 mls/hr IV.SIG Q6H [facility] Rx#: [id number] Other: # Voids 2 Weight On Admission 54.431 kg Narrative: Alert and awake Abd: soft; non tender; non distended Results - Labs 04/06/18 06:20 04/05/18 06:31 Laboratory Results - last 24 hr 04/04/18 04/04/18 04/04/18 17:26 20:10 23:40 WBC RBC Hgb Hct MCV MCH MCHC RDW Plt Count MPV Neut % (Auto) Lymph % (Auto) Braxton % (Auto) Eos % (Auto) Baso % (Auto) Neut # (Auto) Lymph # (Auto) Braxton # (Auto) Eos # (Auto) Baso # (Auto) WBC Differential Differential Comment Sodium Potassium Chloride Carbon Dioxide Anion Gap BUN Creatinine Estimated GFR POC Glucose 194 H 237 H 256 H Random Glucose Calcium 04/05/18 04/05/18 04/05/18 05:53 06:31 06:31 WBC 12.2 H RBC 3.68 L Hgb 9.7 L Hct 30.2 L MCV 82.1 MCH 26.3 L MCHC 32.0 RDW 14.8 Plt Count 300 MPV 7.1 Neut % (Auto) 85.7 H Lymph % (Auto) 7.5 L Braxton % (Auto) 5.1 Eos % (Auto) 1.3 Baso % (Auto) 0.4 Neut # (Auto) 10.5 H Lymph # (Auto) 0.9 L Braxton # (Auto) 0.6 Eos # (Auto) 0.2 Baso # (Auto) 0.0 WBC Differential . Differential Comment Auto diff final Sodium 143 Potassium 3.7 Chloride 111 H Carbon Dioxide 25.3 Anion Gap 7 BUN 5 L Creatinine 0.66 Estimated GFR Greater than 89 POC Glucose 211 H Random Glucose 231 H Calcium 8.6 04/05/18 12:26 WBC RBC Hgb Hct MCV MCH MCHC RDW Plt Count MPV Neut % (Auto) Lymph % (Auto) Braxton % (Auto) Eos % (Auto) Baso % (Auto) Neut # (Auto) Lymph # (Auto) Braxton # (Auto) Eos # (Auto) Baso # (Auto) WBC Differential Differential Comment Sodium Potassium Chloride Carbon Dioxide Anion Gap BUN Creatinine Estimated GFR POC Glucose 187 H Random Glucose Calcium - Imaging Imaging: ITS Impressions Chest X-Ray 04/03/18 17:01 CONCLUSION: No acute cardiopulmonary abnormality is identified. Abdomen/Pelvis CT 04/03/18 18:14 CONCLUSION: 1. Complex pericecal air-containing right pelvic fluid collection measuring 5.0 x 6.0 cm. An enlarged appendix is noted in this region. Differential considerations include perforated appendicitis with pericecal abscess versus pericecal abscess with secondary inflammation of the appendix. Clinical correlation is recommended. 2. Ill-defined 2 cm region of decreased enhancement in the mid left kidney. Although this may reflect focal transient enhancement abnormality, cannot exclude an ill-defined mass or less likely focal pyelonephritis. Consider renal mass protocol MRI examination on an outpatient basis. Abscess Drainage CT 04/04/18 00:00 CONCLUSION: 1. Collection within the pelvis there is freely flowing fluid and a small volume of air. No loculated abscess observed. Assessment and Plan - Plan 67 year old female with intra-abdominal abscess -IR not able to drain abscess -Responding well to antibiotics -Start clear liquids -Will need at least 24-48 hours longer of IV antibiotics -Monitor WBC - Attending Attestation The exam, history, and the medical decision-making described in the above note were completed with the assistance of the mid-level provider. I reviewed and agree with the findings presented. I attest that I had a [id number] encounter with the patient on the same day, and personally performed and documented my assessment and findings in the medical record. 67yo female with pelvic abscess, appendicitis vs diverticular stable, abdominal exam non-surgical d/w patient plan, continue abx will need fu CT scan, possibly colorectal surgery eval
[2018-04-05] MEDS: Dextrose 5%/NaCl 0.9% Inj 1,000 ML IV.CONT SCH ×2 (15:37→23:19)
[2018-04-05] MEDS: Insulin Detemir Inj 1,000 UNIT/10 ML Vial SQ SCH (20:00)
[2018-04-06] MEDS: Insulin NovoLOG Aspart Correctional Sugar Inj SQ SCH ×5 (00:12→23:42)
[2018-04-06] MEDS: Dextrose 5%/NaCl 0.9% Inj 1,000 ML IV.CONT SCH ×2 (04:18→10:48)
[2018-04-06] MEDS: Piperacil/Tazo 3.375 GM Premix 3.375 GM/50 ML PIGGYBACK IV.SIG SCH ×4 (06:21→23:31)
[2018-04-06] MEDS: Levothyroxine 100 MCG Tablet PO SCH (06:21)
[2018-04-06 07:24] LABS: Baso % (Auto) 0.4 % (0.0-2.0); Eos # (Auto) 0.2 th/mm3 (0.0-0.4); Hematocrit 29.9 % (35.0-46.0); Hemoglobin 9.6 gm/dL (11.6-15.3); Lymph # (Auto) 1.1 th/mm3 (1.0-4.8); Lymph % (Auto) 10.8 % (9.0-44.0); Mean Corpuscular HGB Conc 32.1 % (32.0-36.0); Mean Corpuscular Hemoglobin 26.5 pg (27.0-34.0); Mean Corpuscular Volume 82.4 fL (80.0-100.0); Mean Platelet Volume 7.2 fL (7.0-11.0); Mono # (Auto) 0.6 th/mm3 (0.0-0.9); Mono % (Auto) 5.7 % (0.0-8.0); Neut # (Auto) 8.4 th/mm3 (1.8-7.7); Neut % (Auto) 81.1 % (16.0-70.0); Platelet Count 283 th/mm3 (150-450); Red Blood Count 3.63 mil/mm3 (4.00-5.30); Red Cell Distribution Width 14.3 % (11.6-17.2); White Blood Count 10.4 th/mm3 (4.0-11.0)
[2018-04-06] MEDS ORDERED: Diatrizoate Meglum/Diatrizoate Sod Liq 9 ML UDC PO ONE (07:37)
[2018-04-06] MEDS: Lisinopril 10 MG Tablet PO SCH (08:40)
--- NOTE | 2018-04-06 10:48 | XR ---
EXAM DATE: 04/06/2018 10:44 AM EST AGE/SEX: 67 years / Female INDICATIONS: Shortness of breath. CLINICAL DATA: This is the patient's initial encounter. Patient reports that signs and symptoms have been present for 1 day and indicates a pain score of 0/10. MEDICAL/SURGICAL HISTORY: . Diabetes. Hypertension. None. COMPARISON: [facility] – [place], CHEST 1V SINGLE AP, 04/03/2018. . FINDINGS: The heart is enlarged. Moderate interstitial edema is present. Minimal bibasilar parenchymal changes worse on the left. No pleural effusion Degenerative changes about both shoulders. CONCLUSION: Cardiomegaly with moderate congestive failure. Electronically signed by: Josias López MD Board Certified Radiologist 04/06/2018 10:47 AM EST
--- NOTE | 2018-04-06 11:21 | P.PNGS ---
Subjective Interval history: Resting in bed Complete resolution of abdominal pain Physical Exam Vital signs: Vital Signs 04/05/18 11:40 04/05/18 17:30 04/05/18 18:28 Temperature 98.8 F 98.1 F Pulse Rate 86 89 Respiratory Rate 16 16 Blood Pressure 157/70 H 186/81 H 165/62 H Pulse Oximetry 95 98 04/05/18 20:00 04/06/18 00:00 04/06/18 04:00 Temperature 97.6 F 97.9 F 97.9 F Pulse Rate 83 80 80 Respiratory Rate 16 16 16 Blood Pressure 185/83 H 184/82 H 134/82 Pulse Oximetry 97 98 98 04/06/18 08:00 04/06/18 10:40 Temperature 98.1 F Pulse Rate 83 84 Respiratory Rate 17 16 Blood Pressure 172/72 H Pulse Oximetry 100 Intake & Output 04/05/18 04/06/18 04/06/18 18:59 06:59 18:59 Intake Total 1390 / 1390 1780 / 1780 1050 / 1050 Output Total 1000 / 1000 Balance 390 / 390 1780 / 1780 1050 / 1050 Weight 55 kg Intake: IV 1150 / 1150 1100 / 1100 1050 / 1050 D5W/Normal Saline Inj 1,000 ML 1000 / 1000 1000 / 1000 1000 / 1000 @ 84 mls/hr IV.CONT .[id number] JOLANTA Rx#:[id number] Zosyn 3.375 GM Premix 3.375 gm 50 / 50 100 / 100 50 / 50 In 50 ml @ 100 mls/hr IV.SIG Q6H JOLANTA Rx#:[id number] Flagyl 250 mg Inj 50 ML @ 100 100 / 100 mls/hr IV.SIG Q6H JOLANTA Rx#: [id number] Oral 240 / 240 Other 680 / 680 Output: Urine 1000 / 1000 Other: # Bowel Movements 2 Narrative: Alert and awake Abd: soft; non tender non distended Results - Labs 04/06/18 06:20 04/05/18 06:31 Laboratory Results - last 24 hr 04/05/18 04/05/18 04/06/18 12:26 17:59 00:06 WBC RBC Hgb Hct MCV MCH MCHC RDW Plt Count MPV Neut % (Auto) Lymph % (Auto) [place] % (Auto) Eos % (Auto) Baso % (Auto) Neut # (Auto) Lymph # (Auto) [place] # (Auto) Eos # (Auto) Baso # (Auto) WBC Differential Differential Comment POC Glucose 187 H 382 H 312 H 04/06/18 04/06/18 06:20 06:21 WBC 10.4 RBC 3.63 L Hgb 9.6 L Hct 29.9 L MCV 82.4 MCH 26.5 L MCHC 32.1 RDW 14.3 Plt Count 283 MPV 7.2 Neut % (Auto) 81.1 H Lymph % (Auto) 10.8 [place] % (Auto) 5.7 Eos % (Auto) 2.0 Baso % (Auto) 0.4 Neut # (Auto) 8.4 H Lymph # (Auto) 1.1 [place] # (Auto) 0.6 Eos # (Auto) 0.2 Baso # (Auto) 0.0 WBC Differential . Differential Comment Auto diff final POC Glucose 123 H - Imaging Imaging: ITS Impressions Abdomen/Pelvis CT 04/03/18 18:14 CONCLUSION: 1. Complex pericecal air-containing right pelvic fluid collection measuring 5.0 x 6.0 cm. An enlarged appendix is noted in this region. Differential considerations include perforated appendicitis with pericecal abscess versus pericecal abscess with secondary inflammation of the appendix. Clinical correlation is recommended. 2. Ill-defined 2 cm region of decreased enhancement in the mid left kidney. Although this may reflect focal transient enhancement abnormality, cannot exclude an ill-defined mass or less likely focal pyelonephritis. Consider renal mass protocol MRI examination on an outpatient basis. Abscess Drainage CT 04/04/18 00:00 CONCLUSION: 1. Collection within the pelvis there is freely flowing fluid and a small volume of air. No loculated abscess observed. Chest X-Ray 04/06/18 10:20 CONCLUSION: Cardiomegaly with moderate congestive failure. Assessment and Plan - Plan 67 year old female with intra-abdominal abscess -IR not able to drain abscess -Responding well to antibiotics -Tolerating clear liquids -Will need at least 24-48 hours longer of IV antibiotics -WBC now normal -Dr. Lucas to see patient today - Attending Attestation The exam, history, and the medical decision-making described in the above note were completed with the assistance of the mid-level provider. I reviewed and agree with the findings presented. I attest that I had a [id number] encounter with the patient on the same day, and personally performed and documented my assessment and findings in the medical record. 67yo female, IAA, ?etiology CT scan reviewed, abscess improved continue ABX will await CRS recs
--- NOTE | 2018-04-06 12:52 | CT ---
EXAM DATE: 04/06/2018 12:26 PM EST AGE/SEX: 67 years / Female INDICATIONS: Follow up to pelvic abscess drain. CLINICAL DATA: This is the patient's subsequent encounter. Patient reports that signs and symptoms h ave been present for 4 - 6 days and indicates a pain score of 4/10. MEDICAL/SURGICAL HISTORY: Diabetes. Hypertension. section. ORAL CONTRAST: Prescribed oral contrast ingested. RADIATION DOSE: 6.71 CTDI (mGy) COMPARISON: [facility] – [place], CT ASSISTED ABSCESS DRAIN, 04/04/2018. . TECHNIQUE: Multiple contiguous axial images were obtained through the abdomen and pelvis following b olus infusion of 85 ml Omnipaque 350 (iohexol) nonionic water-soluble contrast as a single exam dos e. Prescribed oral contrast ingested. Using automated exposure control and adjustment of the mA and/ or kV according to patient size, radiation dose was kept as low as reasonably achievable to obtain op timal diagnostic quality images. DICOM format image data is available electronically for review and comparison. FINDINGS: There are small bilateral pleural effusions that have progressed in the interval.. Minimal compressiv e atelectasis is present in both lung bases. . The liver, spleen, pancreas and adrenals unremarkable Gallbladder small and contracted Colon sits anterior to the liver. Spleen pancreas and adrenals unremarkable Cecum, ascending, transverse and descending colon appear normal There is minimal induration in the peripelvic tissues. I do not see residual abscess or fluid collect ion the pelvis. CONCLUSION: 1. No residual abscess. 2. Minimal induration in the soft tissues of the left lower quadrant, nonspecific Electronically signed by: Josias López MD Board Certified Radiologist 04/06/2018 12:51 PM EST
--- NOTE | 2018-04-06 15:05 | ECHRPT ---
Indication: HEART FAILURE CONCLUSIONS Normal left ventricular size. Wall thickness is normal. The left ventricular systolic function is normal with an estimated ejection fraction in the range of 60-65%. Mild mitral valve regurgitation. Aortic valve sclerosis is present. There is mild tricuspid valve regurgitation. The estimated pulmonary arterial pressure is 44mmHg. BP: / HR: Rhythm: Sinus MEASUREMENTS (Male / Female) Normal Values Technical Quality:Fair 2D ECHO LV Diastolic Diameter PLAX 3.9 cm 4.2 - 5.9 / 3.9 - 5.3 cm LV Systolic Diameter PLAX 2.7 cm IVS Diastolic Thickness 0.8 cm 0.6 - 1.0 / 0.6 - 0.9 cm LVPW Diastolic Thickness 0.7 cm 0.6 - 1.0 / 0.6 - 0.9 cm LV Relative Wall Thickness 0.4 RV Internal Dim ED PLAX 2.4 cm LVOT Diameter 1.2 cm Aortic Root Diameter 2.0 cm LA Systolic Diameter LX 2.8 cm 3.0 - 4.0 / 2.7 - 3.8 cm M-MODE AV Cusp Separation MM 1.0 cm DOPPLER AV Peak Velocity 237.0 cm/s AV Peak Gradient 22.5 mmHg AV Mean Gradient 12.0 mmHg AV Velocity Time Integral 53.2 cm LVOT Peak Velocity 143.0 cm/s LVOT Peak Gradient 8.2 mmHg LVOT Velocity Time Integral 32.7 cm AV Area Cont Eq vti 0.7 cm AV Area Cont Eq pk 0.7 cm MR Peak Velocity 501.0 cm/s MR Peak Gradient 100.4 mmHg Mitral E Point Velocity 139.0 cm/s Mitral A Point Velocity 124.0 cm/s Mitral E to A Ratio 1.1 LV E' Lateral Velocity 9.1 cm/s Mitral E to LV E' Lateral Ratio 15.3 LV E' Septal Velocity 7.8 cm/s Mitral E to LV E' Septal Ratio 17.8 TR Peak Velocity 293.0 cm/s TR Peak Gradient 34.3 mmHg Right Atrial Pressure 10.0 mmHg Pulmonary Artery Systolic Pressu 44.3 mmHg Right Ventricular Systolic Press 44.3 mmHg PV Peak Velocity 141.0 cm/s PV Peak Gradient 8.0 mmHg FINDINGS LEFT VENTRICLE Normal left ventricular size. Wall thickness is normal. The left ventricular systolic function is normal with an estimated ejection fraction in the range of 60-65%. RIGHT VENTRICLE Normal right ventricular size and systolic function. LEFT ATRIUM The left atrial size is normal. RIGHT ATRIUM The right atrial size is normal. ATRIAL SEPTUM Normal atrial septal thickness without atrial level shunting by limited color doppler interrogation. AORTA The aortic root and proximal ascending aorta are normal in size on limited imaging. MITRAL VALVE Mild mitral valve regurgitation. AORTIC VALVE Aortic valve sclerosis is present. TRICUSPID VALVE There is mild tricuspid valve regurgitation. The estimated pulmonary arterial pressure is 44mmHg. PULMONARY VALVE No pulmonary valve regurgitation or stenosis. VESSELS The inferior vena cava is normal in size. PERICARDIUM No pericardial effusion. Arnie Perez MD, FACC, [facility] [place] (Electronically Signed) Final Date:06 April 2018 15:04
--- NOTE | 2018-04-06 18:42 | P.PNIM ---
Subjective Interval history: Follow-up for intra-abdominal abscess. Pt was seen in the morning. She complains of significant shortness of breath even on supplemental O2. We immediately instituted breathing treatments, lasix 40mg IV which significantly improved her breathing. No abdominal pain. No fever, chills. Physical Exam Vital signs: Vital Signs 04/05/18 20:00 04/06/18 00:00 04/06/18 04:00 Temperature 97.6 F 97.9 F 97.9 F Pulse Rate 83 80 80 Respiratory Rate 16 16 16 Blood Pressure 185/83 H 184/82 H 134/82 Pulse Oximetry 97 98 98 04/06/18 08:00 04/06/18 10:40 04/06/18 11:35 Temperature 98.1 F 98 F Pulse Rate 83 84 84 Respiratory Rate 17 16 16 Blood Pressure 172/72 H 145/93 H Pulse Oximetry 100 93 L 04/06/18 15:40 Temperature 99 F Pulse Rate 89 Respiratory Rate 16 Blood Pressure 157/69 H Pulse Oximetry 97 Intake & Output 04/05/18 04/06/18 04/06/18 18:59 06:59 18:59 Intake Total 1390 / 1390 1780 / 1780 1150 / 1150 Output Total 1000 / 1000 Balance 390 / 390 1780 / 1780 1150 / 1150 Weight 55 kg Intake: IV 1150 / 1150 1100 / 1100 1150 / 1150 D5W/Normal Saline Inj 1,000 ML 1000 / 1000 1000 / 1000 1000 / 1000 @ 84 mls/hr IV.CONT .[id number] [facility] Rx#:[id number] Zosyn 3.375 GM Premix 3.375 gm 50 / 50 100 / 100 150 / 150 In 50 ml @ 100 mls/hr IV.SIG Q6H JOL[facility]A Rx#:[id number] Flagyl 250 mg Inj 50 ML @ 100 100 / 100 mls/hr IV.SIG Q6H JOLANTA Rx#: [id number] Oral 240 / 240 Other 680 / 680 Output: Urine 1000 / 1000 Other: # Bowel Movements 2 Narrative: GENERAL: Well-nourished, well-developed patient. SKIN: Warm and dry. HEAD: Normocephalic. EYES: No scleral icterus. No injection or drainage. NECK: Supple, trachea midline. No JVD or lymphadenopathy. CARDIOVASCULAR: Regular rate and rhythm without murmurs, gallops, or rubs. RESPIRATORY: Bibasilar crackles and moderate air entry noted. GASTROINTESTINAL: Abdomen soft, non-tender, nondistended. MUSCULOSKELETAL: No cyanosis, or edema. BACK: Nontender without obvious deformity. No CVA tenderness. Results Labs CBC & Chem 7: 04/06/18 06:20 04/05/18 06:31 Imaging Imaging: Impressions Abdomen/Pelvis CT 04/06/18 00:00 CONCLUSION: 1. No residual abscess. 2. Minimal induration in the soft tissues of the left lower quadrant, nonspecific Chest X-Ray 04/06/18 10:20 CONCLUSION: Cardiomegaly with moderate congestive failure. Assessment and Plan Plan Ms. Allan is a pleasant 67-year-old female with a history of hypothyroidism, diabetes mellitus who presented to the emergency department on 04/03/2018 due to nausea, vomiting, diarrhea and a syncopal episode. She was complaining of mid abdominal sharp pain. CT scan showed intra-abdominal abscess. General surgery was consulted. IR was unable to drain the abscess. Acute dyspnea -CXR shows fluid congestion -Echo ordered - shows normal EF. -Will continue Lasix 40mg IV BID For today and possibly tomorrow. -D/C fluid. Intra-abdominal abscess Discontinue Levaquin and Flagyl and continue Zosyn 3.375 g every 6 hours Discussed with general surgery. General surgery consulted Colorectal surgery -Dr. Lucas obtained another CT which shows no further abscess -We can likely d/c patient on Oral abx. Syncope -Possibly due to volume depletion due to N/V, Diarrhea. -Regular diet. Diabetes mellitus -Levemir 10 units QHS and continue sliding scale insulin. Goal blood glucose [id number]. Hypothyroidism -continue levothyroxine 100 mcg daily. Full code. SCDs. Progress Note: Quality VTE Deep Vein Thrombosis/Pulmonary Embolism Present on Admission: No
--- NOTE | 2018-04-06 19:37 | P.PNCS ---
Subjective Interval history: Events since adm reviewed less tender today CT asp only air afebrile, VSS UO good +BM Objective Result Diagrams: 04/06/18 06:20 04/05/18 06:31 Objective Remarks: PE alert Abd - soft, min tender, no mass Assessment and Plan - Plan Imp: repeat CT normal adv diet if anny , can DC for outpt fu
[2018-04-06] MEDS: Insulin Detemir Inj 1,000 UNIT/10 ML Vial SQ SCH (20:36)
[2018-04-07] MEDS: Insulin NovoLOG Aspart Correctional Sugar Inj SQ SCH ×4 (05:18→13:17)
[2018-04-07] MEDS: Piperacil/Tazo 3.375 GM Premix 3.375 GM/50 ML PIGGYBACK IV.SIG SCH ×2 (05:18→12:39)
[2018-04-07] MEDS: Levothyroxine 100 MCG Tablet PO SCH (05:19)
[2018-04-07] MEDS: Lisinopril 10 MG Tablet PO SCH (09:21)
[2018-04-07] MEDS ORDERED: Dextrose 50% in Water 50 ML Vial IV.PUSH PRN (09:32)
[2018-04-07] MEDS ORDERED: amLODIPine 5 MG Tablet PO SCH (10:00)
--- NOTE | 2018-04-07 10:12 | P.PNCS ---
Subjective Interval history: afebrile, VSS UO good no pain +BM Objective Result Diagrams: 04/06/18 06:20 04/05/18 06:31 Objective Remarks: PE alert Abd - soft, min tender, no mass Assessment and Plan - Plan Imp: repeat CT normal - no abscess adv diet if anny , can DC for outpt fu - poss colonoscopy
--- NOTE | 2018-04-07 10:57 | MB ---
cc: Francis Lucas MD DATE: 04/06/2018 REASON FOR CONSULTATION: Pelvic abscess, possible diverticulitis. HISTORY OF PRESENT ILLNESS: Ms. Allan is a 67-year-old female who came into the emergency room with syncope. She states she has had several days of nausea, vomiting, abdominal distention, and some loose stools. The patient was in the bathroom the day of admission and had a syncopal episode. On evaluation in the emergency room, she had stable vital signs and only complained of low abdominal discomfort. The patient had a CT scan that showed a complex pelvic fluid collection measuring about 5 x 6 cm, which had some air-fluid levels. Concern for an appendiceal or diverticular abscess was raised and the patient was admitted for IV antibiotics and possible drainage. She was seen by Dr. Noland for general surgery consultation and he asked the undersigned to see her for possible diverticular perforation. She does have some chronic constipation issues. Denies any long-term laxative use. Denies any rectal bleeding and no melena. Her appetite had been good until this episode and she denies any significant weight loss. PAST MEDICAL AND SURGICAL HISTORY: Well documented in the history and physical other consultations. PHYSICAL EXAMINATION: GENERAL: A very pleasant small female in no acute distress. HEENT: Remarkable for dry, but pink membranes. Nonicteric sclerae. NECK: Supple without gross adenopathy. CHEST: Relatively clear and symmetrically expanded. ABDOMEN: Very soft, a little doughy, not really distended. Some tenderness in the lower abdomen, but no rebound or guarding or any masses noted. RECTAL: Exam revealed some benign hemorrhoid tissues. No significant mucosal irregularities and no significant pelvic fullness or tenderness. DIAGNOSTIC STUDIES: Routine labs reviewed. CT scan was reviewed showing a complex pelvic mass on initial presentation. A CT-guided drainage, however, produced only air and very little fluid. IMPRESSION AND PLAN: A 67-year-old female with possible localized pelvic fluid collection. Aspiration revealed mostly air. The patient appears very nontoxic today and says her pain is disappeared. She has been on advancing diet and tolerating it pretty well. We will get a repeat CT scan and see if the abscess is still present or if it is resolving with conservative treatment. Would continue the antibiotics and see if it was a diverticular perforation. If it goes away completely, she may be able to be followed conservatively. Possibility for the abscess to recur in which case she might need either a CT scan drainage or potentially an exploratory laparotomy and operative intervention. We will see what the CT scan shows and then make recommendations based on the followup films. MD PAWAN Hodge/ben , 10:25 AM , 10:33 AM
--- NOTE | 2018-04-07 11:35 | P.PNIM ---
Subjective Interval history: Follow-up for intra-abdominal abscess. Patient is doing well. Currently on room air. No fever, chills. No abdominal pain. Physical Exam Vital signs: Vital Signs 04/06/18 11:35 04/06/18 15:40 04/06/18 20:00 Temperature 98 F 99 F 98.2 F Pulse Rate 84 89 73 Respiratory Rate 16 16 18 Blood Pressure 145/93 H 157/69 H 144/66 H Pulse Oximetry 93 L 97 100 04/07/18 00:00 04/07/18 04:00 04/07/18 08:00 Temperature 97.6 F 98.2 F 97.6 F Pulse Rate 75 73 80 Respiratory Rate 18 18 16 Blood Pressure 173/71 H 159/70 H 185/74 H Pulse Oximetry 93 L 100 99 Intake & Output 04/06/18 04/07/18 04/07/18 18:59 06:59 18:59 Intake Total 2110 / 2110 580 / 580 Output Total 1150 / 1150 Balance 960 / 960 580 / 580 Weight 55.1 kg Intake: IV 1150 / 1150 100 / 100 D5W/Normal Saline Inj 1,000 ML 1000 / 1000 @ 84 mls/hr IV.CONT .[id number] [facility]OL[facility]A Rx#:[id number] Zosyn 3.375 GM Premix 3.375 gm 150 / 150 100 / 100 In 50 ml @ 100 mls/hr IV.SIG Q6H JOLANTA Rx#:[id number] Oral 960 / 960 480 / 480 Output: Urine 1150 / 1150 Other: # Voids 3 # Bowel Movements 2 Narrative: GENERAL: Well-nourished, well-developed patient. SKIN: Warm and dry. HEAD: Normocephalic. EYES: No scleral icterus. No injection or drainage. NECK: Supple, trachea midline. No JVD or lymphadenopathy. CARDIOVASCULAR: Regular rate and rhythm without murmurs, gallops, or rubs. RESPIRATORY: Bibasilar crackles and moderate air entry noted. GASTROINTESTINAL: Abdomen soft, non-tender, nondistended. MUSCULOSKELETAL: No cyanosis, or edema. BACK: Nontender without obvious deformity. No CVA tenderness. Results Labs CBC & Chem 7: 04/06/18 06:20 04/05/18 06:31 Imaging Imaging: Impressions Abdomen/Pelvis CT 04/06/18 00:00 CONCLUSION: 1. No residual abscess. 2. Minimal induration in the soft tissues of the left lower quadrant, nonspecific Assessment and Plan Plan Ms. Allan is a pleasant 67-year-old female with a history of hypothyroidism, diabetes mellitus who presented to the emergency department on 04/03/2018 due to nausea, vomiting, diarrhea and a syncopal episode. She was complaining of mid abdominal sharp pain. CT scan showed intra-abdominal abscess. General surgery was consulted. IR was unable to drain the abscess. Probable diastolic heart failure, acute exacerbation -CXR shows fluid congestion -Echo ordered - shows normal EF. -one more dose of IV Lasix today. Upon discharge, we will continue Torsemide 10mg Qday. Intra-abdominal abscess Discontinue Levaquin and Flagyl and continue Zosyn 3.375 g every 6 hours Discussed with general surgery. General surgery consulted Colorectal surgery -Dr. Lucas obtained another CT which shows no further abscess -We can likely d/c patient on Oral abx - probably Augmentin. Syncope -Possibly due to volume depletion due to N/V, Diarrhea. -Regular diet. No further symptoms. She is ambulating well. Currently on room air. Diabetes mellitus -Levemir 10 --> 7 units QHS and continue sliding scale insulin. Goal blood glucose [id number]. -At home she takes Levemir 15 units, will advise patient to start lower and gradually adjust. Hypothyroidism -continue levothyroxine 100 mcg daily. Full code. SCDs. Progress Note: Quality VTE Deep Vein Thrombosis/Pulmonary Embolism Present on Admission: No
[2018-04-07 12:27] VITALS: BP 187/85; PULSE 76; RESP 14; TEMP 98; O2SAT 100
--- NOTE | 2018-04-07 12:32 | P.PNGS ---
Subjective Patient reports: feels better, tolerating a regular diet, flatus, bowel movement Interval history: DAILY PROGRESS NOTE FOR SURGICAL ATTENDING, DR. RAFITA GIL Patient feels much better Excited to go home Tolerating regular diet Physical Exam Vital signs: Vital Signs 04/06/18 15:40 04/06/18 20:00 04/07/18 00:00 Temperature 99 F 98.2 F 97.6 F Pulse Rate 89 73 75 Respiratory Rate 16 18 18 Blood Pressure 157/69 H 144/66 H 173/71 H Pulse Oximetry 97 100 93 L 04/07/18 04:00 04/07/18 08:00 04/07/18 12:00 Temperature 98.2 F 97.6 F 98.0 F Pulse Rate 73 80 76 Respiratory Rate 18 16 14 Blood Pressure 159/70 H 185/74 H 187/85 H Pulse Oximetry 100 99 100 Intake & Output 04/06/18 04/07/18 04/07/18 18:59 06:59 18:59 Intake Total 2110 / 2110 580 / 580 Output Total 1150 / 1150 Balance 960 / 960 580 / 580 Weight 55.1 kg Intake: IV 1150 / 1150 100 / 100 D5W/Normal Saline Inj 1,000 ML 1000 / 1000 @ 84 mls/hr IV.CONT .[id number] JOLANTA Rx#:[id number] Zosyn 3.375 GM Premix 3.375 gm 150 / 150 100 / 100 In 50 ml @ 100 mls/hr IV.SIG Q6H JOLANTA Rx#:[id number] Oral 960 / 960 480 / 480 Output: Urine 1150 / 1150 Other: # Voids 3 # Bowel Movements 2 Narrative: Patient sitting up at the side of the bed Family at bedside No abdominal pain Excited to go home Results - Labs 04/06/18 06:20 04/05/18 06:31 Laboratory Results - last 24 hr 04/06/18 04/06/18 04/06/18 12:42 17:19 23:34 POC Glucose 177 H 421 H 143 H 04/07/18 04/07/18 04/07/18 05:18 08:14 08:37 POC Glucose 104 56 L 77 04/07/18 04/07/18 04/07/18 09:17 09:19 12:16 POC Glucose 306 H 207 H 227 H - Imaging Imaging: ITS Impressions Abscess Drainage CT 04/04/18 00:00 CONCLUSION: 1. Collection within the pelvis there is freely flowing fluid and a small volume of air. No loculated abscess observed. Abdomen/Pelvis CT 04/06/18 00:00 CONCLUSION: 1. No residual abscess. 2. Minimal induration in the soft tissues of the left lower quadrant, nonspecific Chest X-Ray 04/06/18 10:20 CONCLUSION: Cardiomegaly with moderate congestive failure. Assessment and Plan - Assessment (1) Free fluid in pelvis Code(s): R18.8 - Other ascites Status: Acute (2) Pelvic fluid collection Code(s): R18.8 - Other ascites Status: Acute - Plan 67-year-old female who had a pelvic abscess that has subsequently resolved after treatment. Discussed with Dr. Lucas today Okay to discharge home from general surgery standpoint - Attending Attestation NOTE FOR SURGICAL ATTENDING, DR. RAFITA GIL I attest that I had a [id number] encounter with the patient on the same day, and personally performed and documented my assessment and findings in the medical record. The following services were provided during this hospital visit: Chart data review, vital sign assessments/reviewing monitor data Review of consultations notes if present. Medication orders/review and/or management Ordering and/or reviewing lab tests Ordering and/or interpreting/reviewing x-rays and/or diagnostic studies Care of the patient and discussion of the patient with the care team Documentation time To help prompt me to consider important information that might be impacting today's encounter and assessment, Information from prior notes written by myself or my colleagues may have been "brought forward/copy and pasted" into today's note.
[2018-04-07] MEDS ORDERED: Insulin Detemir Inj 1,000 UNIT/10 ML Vial SQ SCH (21:00)
== END 2018-04-07 15:22 | disposition home or self-care (01) | DRG 371 ==
LOC: NEPD 16:43 → NEDA 21:53 → NEDH 04-04 04:41 → N04 04-04 12:35
PROVIDERS: ADMIT Hospitalist; ATTEND Hospitalist
CPT/HCPCS: 71010; 71045; 74177; 75989; 80048; 80053; 81001; 82550; 82947; 82948; 82962; 83605; 83690; 83735; 84484; 85025; 85610; 85730; 87077; 87086; 87186; 87493; 90761; 90765; 90775; 93005; 93306; 94664; 96361; 96365; 96375; 99285; C1769; J1815; J1940; J2250; J2405; J2543; J3010; J7030; J7042; Q9963; Q9967